=== PATIENT | male | born 1935 | race Caucasian/White ===

== ENCOUNTER 2016-11-04 12:46 | Inpatient (IN) | payer OTHER, BC ==
--- NOTE | 2016-11-04 12:54 | CPEKG ---
Heart Rate: 66 RR Interval: 909 QRSD Interval: 146 QT Interval: 476 QTC Interval: 499 P Leota: 0 QRS Leota: -40 T Wave Leota: 128 EKG Severity - ABNORMAL ECG - EKG Impression: VENTRICULAR-PACED COMPLEXES EKG Impression: pvc Electronically Signed By: Lamin Fields 05-Nov-2016 12:23:54
--- NOTE | 2016-11-04 13:05 | EDPHY ---
H & P Time Seen by Provider: 11/04/16 12:56 HPI/ROS: CHIEF COMPLAINT: Near-syncope HISTORY OF PRESENT ILLNESS: The patient is an anticoagulated 81 y/o male arriving via EMS for evaluation of a stroke alert. EMS reports that he was at physical therapy doing stand-ups from his wheelchair when he began feeling light -headed, and near syncopal, sat down hard, and vomited. He was reassessed 1 hour later, sat up and felt shaky but did not vomit then sat down. He has a pacer which was reviewed by EMS to have a spike with no PQRS complex. He visited the ED 2 weeks ago for shortness of breath and hypoxia and was discharged He has not had a fever, cold, nausea or vomiting and was normal days prior to the event. He denies headache, chest pain, nausea, and shortness of breath. REVIEW OF SYSTEMS: Aside from elements discussed in the HPI, a comprehensive 10-point review of systems was reviewed and is negative. PAST MEDICAL HISTORY: Inguinal hernia repair, Pacemaker, Cardiac Stents SOCIAL HISTORY: Resides at assisted living facility. Non-smoker. Son at bedside. He has infected ear. He was at PT and had a 1 minute seizure 2 hours ago. Then had 30 se 1 hour ago. he was doing up downs and had a funny look on his face and sat down hard and threw up. He was then reassesed sat up and felt shakey but did not vomit then sat down. he has a pacer. pacer would spike no pqrs complex with t. [facility]. No fever colds nausea vomiting days up to he was normal. was recently admitted for fluid buildup n chest cavity. 2 weeks e went to [facility]. he denies headache, chest pain, nausea, shortness of breat. Pupils equal and reactive. Moist MM. Irregularly irregular hr. Lungs clear to ascultation. Abdomen bening, skin cool to touch. BP 89/54. On prodaxa. EKG had paced rhythm but on monitor having non capture beats. Breif near- syncopal episode. 500cc bolus, blood, Histat. No leg edema. - Medical/Surgical History Hx Asthma: No Hx Chronic Respiratory Disease: No Hx Diabetes: No Hx Cardiac Disease: Yes Hx Renal Disease: No Hx Cirrhosis: No Hx Alcoholism: No Hx HIV/AIDS: No Hx Splenectomy or Spleen Trauma: No Other PMH: INGUINAL HERNIA SURG/TB LOBECTOMY/PACEMAKER /STENTS,SHINGLES, ORIF NRIGHT HIP. - Social History Smoking Status: Never smoked Constitutional: Initial Vital Signs Temperature (C) 36.3 C 11/04/16 12:51 Heart Rate 70 11/04/16 12:51 Respiratory Rate 20 11/04/16 12:51 Blood Pressure 118/65 11/04/16 12:51 O2 Sat (%) 96 11/04/16 12:51 O2 Delivery Mode Room Air O2 (L/minute) 2 Allergies/Adverse Reactions: clopidogrel bisulfate [From Plavix] Allergy (Verified 10/29/15 19:34) Unknown Corticosteroids (Glucocorticoids) Allergy (Verified 10/29/15 19:34) Unknown meperidine Allergy (Verified 10/29/15 19:34) Unknown meperidine HCl [From Demerol] Allergy (Verified 10/29/15 19:34) Unknown prednisone Allergy (Verified 10/29/15 19:34) Unknown Sulfa (Sulfonamide Antibiotics) Allergy (Verified 10/29/15 19:34) Unknown thiethylperazine Allergy (Verified 10/29/15 19:34) ticlopidine HCl [From Ticlid] Allergy (Verified 10/29/15 19:34) Home Medications: Medication Instructions Recorded Atorvastatin Calcium [Lipitor 10 10 mg PO HS 10/30/15 mg (*)] DULoxetine [Cymbalta] 80 mg PO HS 10/30/15 Dabigatran Etexilate Mesyl 150 mg PO BID 10/30/15 [Pradaxa 150 MG (*)] Ergocalciferol [Vitamin D2 (*)] 50,000 unit PO Q14D 10/30/15 Metoprolol Tartrate [Lopressor 25 25 mg PO BID 10/30/15 mg (*)] Nystatin Powder [Mycostatin Powder] 1 emily TOP BID PRN 10/30/15 Polyethylene Glycol 3350 [Miralax 17 gm PO DAILY 10/30/15 17 gm (*)] Triamcinolone 0.1% [Triamcinolone 1 emily TP TID PRN 10/30/15 0.1% Cream (*)] amLODIPine BESYLATE [Norvasc 5 mg 5 mg PO DAILY 10/30/15 (*)] guaiFENesin [Mucinex 600 MG (*)] 1,200 mg PO BID #90 tab.er 10/30/15 oxyCODONE IR [Oxycodone Ir (*)] 5 mg PO Q3 PRN 10/30/15 Calcium Carbonate [Tums 500MG (*)] 500 mg PO Q8HRS PRN 10/19/16 Omeprazole [Prilosec 20 mg] 20 mg PO HS 10/19/16 Sodium Cl Nasal [[place] (*)] 2 spray EACHNARE BID 10/19/16 Tamsulosin HCl [Flomax 0.4 MG (*)] 0.4 mg PO HS 10/19/16 Furosemide [Lasix 40 MG (*)] 40 mg PO DAILY #30 tab 10/21/16 Departure - Departure Referrals: Patient,NotPresent [Primary Care Provider] - As per Instructions
[2016-11-04] MEDS ORDERED: NS 500 ML IV ONE ×3 (13:10→18:28)
[2016-11-04 13:16] LABS: % IMMATURE GRANULYOCYTES 1.2 % (0.0-1.1); ABSOLUTE IMMATURE GRANULOCYTES 0.16 10^3/uL (0.00-0.10); ADD DIFF? NO; ADD MORPH? NO; ADD SCAN? NO; ATYPICAL LYMPHOCYTE FLAG 0 (0-99); FRAGMENT RBC FLAG 0 (0-99); HEMATOCRIT 44.8 % (40.0-51.0); HEMOGLOBIN 14.8 g/dL (13.7-17.5); LEFT SHIFT FLG 0 (0-99); LIPEMIA HEMOLYSIS FLAG 80 (0-99); MEAN CELL VOLUME 90.9 fL (81.5-99.8); MEAN PLATELET VOLUME 10.2 fL (8.7-11.7); PLATELET CLUMPS FLAG 10 (0-99); PLATELET COUNT 204 10^3/uL (150-400); RED BLOOD CELL COUNT 4.93 10^6/uL (4.40-6.38); RED CELL DISTRIBUTION WIDTH 14.6 % (11.5-15.2)
--- NOTE | 2016-11-04 14:00 | EDPHY ---
HPI/HX/ROS/PE/MDM Narrative: CHIEF COMPLAINT: Possible syncope HISTORY OF PRESENT ILLNESS: The patient is an anticoagulated 81 y/o male arriving via EMS for evaluation of a possible syncopal event or seizure 2 hours prior to arrival. Patient was admitted recently for shortness of breath and hypoxemia and was discharged to an assisted care facility 2 weeks ago. He has been feeling well for the past few days. EMS reports while at physical therapy doing a transfer from his wheelchair the patient suddenly felt lightheaded and near syncopal. Staff then witnessed him slump over in his chair and become minimally responsive for a short period of time. It is unclear what happened following this episode, but his son reports he was reassessed 1 hour later. At that time, he tried to sit up, began jerking his arms, complained of chest pain and nausea, and apparently was confused for about 30 seconds. Upon assessment here he is asymptomatic. He denies fever, cold, vomiting, headache, shortness of breath, or any other associated symptoms. In is incredibly hard of hearing, and history and review of systems is somewhat limited. REVIEW OF SYSTEMS: Aside from elements discussed in the HPI, 10-point review of systems was reviewed and is negative. 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 Past medical records reviewed including admission on 10/18/16 for cough and shortness of breath. SOCIAL HISTORY: Resides at [facility]. Non-smoker. Son at bedside. 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 BP 89/54. GENERAL: Elderly gentleman, hard of hearing, appears in no acute distress. HEENT: Atraumatic. Eyes: No icterus, no injection. Ears: Squamous cell lesion to left ear. Mouth: moist mucous membranes. No erythema or lesions. Neck: supple with no adenopathy. LUNGS: Clear to auscultation bilaterally, no wheezes, rhonchi or rales. CARDIAC: Irregularly irregular rate and rhythm, no rubs, murmurs or gallops. ABDOMEN: Soft, nontender, nondistended, bowel sounds normal. BACK: No CVA tenderness. EXTREMITIES: No trauma. No edema. Range of motion is normal throughout. NEURO: Alert and oriented, grossly nonfocal. SKIN: Warm and dry, no rash. PSYCHIATRIC: Normal mentation, no agitation. Portions of this note were transcribed by a medical billing manager. I, Dr Tiffany Hernandez , personally performed a history, physical exam, medical decision making, and confirmed the accuracy of the information in the transcribed note. ED Course: Plan for EKG, IV, labs, head CT, chest X-ray, and 1L IV NS. [employer] rep. paged for pacemaker interrogation. The 12 lead EKG was interpreted by myself. Ventricular-paced complexes, rate 66. See hard copy and/or "tracemaster" electronic copy for interpretation. 1311: Chest X-ray is positive for small right pleural effusion and cardiomegaly. Head CT is negative for acute process per Dr. Canas, radiology. 1735: Spoke with Matomy Money. He has successfully interrogated patient 's pacemaker and reports there are no remarkable findings. 1828: Spoke with Dr. Del Cid, hospitalist. She accepts admission for his nausea and syncope. MDM: Differential diagnosis of the patient's presenting complaint was considered including but not limited to seizure, vasovagal syncope, arrhythmia, dehydration , acute coronary event, congestive heart failure. - Data Points Imaging Results: Imaging Impressions Chest X-Ray 11/04/16 13:11 Impression: 1. Small right pleural effusion or residual right basilar consolidation have not significantly changed since 2 weeks prior. 2. Cardiomegaly. No failure. Head CT 11/04/16 13:11 Impression: 1. Moderate atrophy with asymmetric central atrophy. 2. No acute hemorrhage, or mass effect. 3. Cerebrovascular atherosclerosis. 4. No definite acute infarct. 5. Moderate microvascular ischemic gliosis. 6. No epidural or subdural hematoma. 7.Consider MRI of the brain without and with contrast enhancement, if there is continued clinical concern. Findings and recommendations discussed with Emergency Department physician, Tiffany Hernandez MD at 13:59 hour, 11/04/2016. Final report concurs with initial preliminary interpretation. Imaging: Discussed imaging studies w/ scallop shucker Radiologist, I viewed and interpreted images myself Laboratory Results: Laboratory Results 11/04/16 12:50 11/04/16 12:50 11/04/16 11/04/16 11/04/16 13:03 12:50 12:50 WBC 13.82 10^3/uL H 10^3/uL (3.80-9.50) RBC 4.93 10^6/uL 10^6/uL (4.40-6.38) Hgb 14.8 g/dL g/dL (13.7-17.5) POC Hgb 14.3 gm/dL gm/dL (13.7-17.5) Hct 44.8 % % (40.0-51.0) POC Hct 42 % % (40-51) MCV 90.9 fL fL (81.5-99.8) MCH 30.0 pg pg (27.9-34.1) MCHC 33.0 g/dL g/dL (32.4-36.7) RDW 14.6 % % (11.5-15.2) Plt Count 204 10^3/uL 10^3/uL (150-400) MPV 10.2 fL fL (8.7-11.7) Neut % (Auto) 85.9 % H % (39.3-74.2) Lymph % (Auto) 3.8 % L % (15.0-45.0) [place] % (Auto) 5.9 % % (4.5-13.0) Eos % (Auto) 2.2 % % (0.6-7.6) Baso % (Auto) 1.0 % % (0.3-1.7) Nucleat RBC Rel Count 0.0 % % (0.0-0.2) Absolute Neuts (auto) 11.86 10^3/uL H 10^3/uL (1.70-6.50) Absolute Lymphs (auto) 0.53 10^3/uL L 10^3/uL (1.00-3.00) Absolute Monos (auto) 0.82 10^3/uL H 10^3/uL (0.30-0.80) Absolute Eos (auto) 0.31 10^3/uL 10^3/uL (0.03-0.40) Absolute Basos (auto) 0.14 10^3/uL H 10^3/uL (0.02-0.10) Absolute Nucleated RBC 0.00 10^3/uL 10^3/uL (0-0.01) Immature Gran % 1.2 % H % (0.0-1.1) Immature Gran # 0.16 10^3/uL H 10^3/uL (0.00-0.10) POC Sodium 137 mEq/L mEq/L (134-144) Sodium 131 mEq/L L mEq/L (134-144) POC Potassium 4.2 mEq/L mEq/L (3.3-5.0) Potassium 4.3 mEq/L mEq/L (3.5-5.2) POC Chloride 100 mEq/L mEq/L (97-110) Chloride 97 mEq/L mEq/L (97-110) Carbon Dioxide 22 mEq/l mEq/l (22-31) Anion Gap 12 mEq/L mEq/L (8-16) POC BUN 29 mg/dL H mg/dL (7-23) BUN 24 mg/dL H mg/dL (7-23) Creatinine 1.0 mg/dL mg/dL (0.7-1.3) POC Creatinine 0.8 mg/dL mg/dL (0.7-1.3) Estimated GFR > 60 Glucose 180 mg/dL H mg/dL (70-100) POC Glucose 169 mg/dL H mg/dL (70-100) Calcium 9.4 mg/dL mg/dL (8.5-10.4) Total Bilirubin 1.3 mg/dL mg/dL (0.1-1.4) Conjugated Bilirubin 0.4 mg/dL mg/dL (0.0-0.5) Unconjugated Bilirubin 0.9 mg/dL mg/dL (0.0-1.1) AST 26 IU/L IU/L (17-59) ALT 32 IU/L IU/L (21-72) Alkaline Phosphatase 101 IU/L IU/L (38-126) Troponin I < 0.012 ng/mL ng/mL (0.000-0.034) NT-Pro-B Natriuret Pep 1360 pg/mL H pg/mL (0-450) Total Protein 6.4 g/dL g/dL (6.3-8.2) Albumin 3.6 g/dL g/dL (3.5-5.0) Lipase 21 IU/L L IU/L (23-300) Medications Given: Discontinued Medications Sodium Chloride (Ns) 500 mls @ 0 mls/hr IV ONCE ONE PRN Reason: Wide Open Stop: 11/04/16 13:11 Last Admin: 11/04/16 13:11 Dose: 500 mls Sodium Chloride (Ns) 500 mls @ 1,000 mls/hr IV EDNOW ONE PRN Reason: Protocol Stop: 11/04/16 13:39 Last Admin: 11/04/16 13:13 Dose: Not Given Point of Care Test Results: 11/04/16 13:03 POC Sodium 137 POC Potassium 4.2 POC Chloride 100 POC BUN 29 H POC Creatinine 0.8 POC Glucose 169 H General Time Seen by Provider: 11/04/16 12:56 Initial Vital Signs: Initial Vital Signs Temperature (C) 36.3 C 11/04/16 12:51 Heart Rate 70 11/04/16 12:51 Respiratory Rate 20 11/04/16 12:51 Blood Pressure 118/65 11/04/16 12:51 O2 Sat (%) 96 11/04/16 12:51 O2 Delivery Mode Nasal Cannula O2 (L/minute) 2 Allergies/Adverse Reactions: clopidogrel bisulfate [From Plavix] Allergy (Verified 10/29/15 19:34) Unknown Corticosteroids (Glucocorticoids) Allergy (Verified 10/29/15 19:34) Unknown meperidine Allergy (Verified 10/29/15 19:34) Unknown meperidine HCl [From Demerol] Allergy (Verified 10/29/15 19:34) Unknown prednisone Allergy (Verified 10/29/15 19:34) Unknown Sulfa (Sulfonamide Antibiotics) Allergy (Verified 10/29/15 19:34) Unknown thiethylperazine Allergy (Verified 10/29/15 19:34) ticlopidine HCl [From Ticlid] Allergy (Verified 10/29/15 19:34) Home Medications: Medication Instructions Recorded Atorvastatin Calcium [Lipitor 10 10 mg PO HS 11/04/16 mg (*)] Calcium Carbonate [Tums 500MG (*)] 500 mg PO Q8 PRN 11/04/16 Dabigatran Etexilate Mesyl 150 mg PO BID 11/04/16 [Pradaxa 150 MG (*)] Duloxetine HCl [Cymbalta] 80 mg PO HS 11/04/16 Ergocalciferol [Vitamin D2 (*)] 50,000 unit PO .[id number] 11/04/16 Flomax 0.4 MG (*) 0.4 mg PO DAILY 11/04/16 Furosemide [Lasix 40 MG (*)] 60 mg PO DAILY 11/04/16 Metoprolol Tartrate [Lopressor 25 25 mg PO BID 11/04/16 mg (*)] Omeprazole [Prilosec 20 mg] 20 mg PO DAILY 11/04/16 Sodium Cl Nasal [[place] (*)] 2 spray NS BID PRN 11/04/16 Triamcinolone 0.1% [Triamcinolone 1 emily LEFTEAR BID 11/04/16 0.1% Cream (*)] amLODIPine BESYLATE [Norvasc 2.5 2.5 mg PO DAILY 11/04/16 mg (*)] guaiFENesin [Mucinex 600 MG (*)] 1,200 mg PO BID 11/04/16 oxyCODONE IR [Oxycodone Ir (*)] 5 mg PO Q3 PRN 11/04/16 Departure - Departure Disposition: [facility] Inpatient Acute Clinical Impression: Nausea Syncope Qualifiers: Syncope type: unspecified Qualified Code(s): R55 - Syncope and collapse Chest pain Qualifiers: Chest pain type: other chest pain Qualified Code(s): R07.89 - Other chest pain Condition: Fair Report Scribed for: Tiffany Hernandez Report Scribed by: Simi Lopez Date of Report: 11/04/16 Time of Report: 14:52 Physician Review and Approval Statement: Portions of this note were transcribed by a medical billing manager. I personally performed a history, physical exam, medical decision making, and confirmed accuracy of information the transcribed note.
[2016-11-04 14:22] LABS: ALANINE AMINOTRANSFERASE 32 IU/L (21-72); ALBUMIN 3.6 g/dL (3.5-5.0); ALKALINE PHOSPHATASE 101 IU/L (38-126); ANION GAP 12 mEq/L (8-16); ASPARTATE AMINOTRANSFERASE 26 IU/L (17-59); BILIRUBIN,TOTAL 1.3 mg/dL (0.1-1.4); BILIRUBIN-CONJUGATED 0.4 mg/dL (0.0-0.5); BILIRUBIN-UNCONJUGATED 0.9 mg/dL (0.0-1.1); CALCIUM 9.4 mg/dL (8.5-10.4); CARBON DIOXIDE 22 mEq/l (22-31); CHLORIDE 97 mEq/L (97-110); GLOMERULAR FILTRATION RATE > 60; GLUCOSE 180 mg/dL (70-100); POTASSIUM 4.3 mEq/L (3.5-5.2); SODIUM 131 mEq/L (134-144); TOTAL PROTEIN 6.4 g/dL (6.3-8.2)
[2016-11-04 14:33] LABS: TROPONIN I < 0.012 ng/mL (0.000-0.034)
[2016-11-04] MEDS ORDERED: ONDANSETRON 4 MG/2 ML VIAL IVP PRN (18:28)
[2016-11-04] MEDS ORDERED: ONDANSETRON DISINTEGRATING 4 MG TAB PO PRN (18:28)
[2016-11-04] MEDS ORDERED: ACETAMINOPHEN 325 MG TAB PO PRN (18:28)
[2016-11-05 02:14] LABS: COLOR YELLOW; LEUKOCYTE ESTERASE,URINE NEGATIVE (NEGATIVE); NITRITE,URINE NEGATIVE (NEGATIVE)
--- NOTE | 2016-11-05 05:20 | PDGENHP ---
History and Physical - Chief Complaint Pre-syncope - History of Present Illness 81 yo M w/ hx of CAD, AF, CHF presents via EMS after episode of pre-syncope. Patient was recently hospitalized and discharged 2 weeks ago to an assisted care facility with an increased dose of diuretics. During PT on the day of admission he felt lightheaded during a transfer and was transiently unresponsive. He was confused for about 30 seconds after this. Upon arrival in the ED give was given 1.5 L IVF and was asymptomatic and feeling better by the time of my evaluation. History Information - Allergies/Home Medication List Allergies/Adverse Reactions: clopidogrel bisulfate [From Plavix] Allergy (Verified 10/29/15 19:34) Unknown Corticosteroids (Glucocorticoids) Allergy (Verified 10/29/15 19:34) Unknown meperidine Allergy (Verified 10/29/15 19:34) Unknown meperidine HCl [From Demerol] Allergy (Verified 10/29/15 19:34) Unknown prednisone Allergy (Verified 10/29/15 19:34) Unknown Sulfa (Sulfonamide Antibiotics) Allergy (Verified 10/29/15 19:34) Unknown thiethylperazine Allergy (Verified 10/29/15 19:34) ticlopidine HCl [From Ticlid] Allergy (Verified 10/29/15 19:34) Home Medications: Atorvastatin Calcium [Lipitor 10 mg (*)] 10 mg PO HS 11/04/16 [Last Taken Unknown] Calcium Carbonate [Tums 500MG (*)] 500 mg PO Q8 PRN 11/04/16 [Last Taken Unknown ] Dabigatran Etexilate Mesyl [Pradaxa 150 MG (*)] 150 mg PO BID 11/04/16 [Last Taken Unknown] Duloxetine HCl [Cymbalta] 80 mg PO HS 11/04/16 [Last Taken Unknown] Ergocalciferol [Vitamin D2 (*)] 50,000 unit PO .[id number] 11/04/16 [Last Taken Unknown] Flomax 0.4 MG (*) 0.4 mg PO DAILY 11/04/16 [Last Taken Unknown] Furosemide [Lasix 40 MG (*)] 60 mg PO DAILY 11/04/16 [Last Taken Unknown] Metoprolol Tartrate [Lopressor 25 mg (*)] 25 mg PO BID 11/04/16 [Last Taken Unknown] Omeprazole [Prilosec 20 mg] 20 mg PO DAILY 11/04/16 [Last Taken Unknown] Sodium Cl Nasal [[place] (*)] 2 spray NS BID PRN 11/04/16 [Last Taken Unknown] Triamcinolone 0.1% [Triamcinolone 0.1% Cream (*)] 1 emily LEFTEAR BID 11/04/16 [ Last Taken Unknown] amLODIPine BESYLATE [Norvasc 2.5 mg (*)] 2.5 mg PO DAILY 11/04/16 [Last Taken Unknown] guaiFENesin [Mucinex 600 MG (*)] 1,200 mg PO BID 11/04/16 [Last Taken Unknown] oxyCODONE IR [Oxycodone Ir (*)] 5 mg PO Q3 PRN 11/04/16 [Last Taken Unknown] I have personally reviewed and updated: family history, medical history - Past Medical History atrial fibrillation (Unclear type), CHF (With loculated transudative effusion), diabetes type 2 Additional medical history: Remote history of tuberculosis. Coronary artery disease with cardiac stents. History of atypical chest pain. Squamous cell skin cancer left ear, status post debridement. Deafness - Surgical History Additional surgical history: Permanent pacemaker. Inguinal and ventral hernia repairs - Family History Additional family history: Patient's son has recently been sick with a cold approximately 1 week ago - Social History Smoking Status: Never smoked Additional social history: Patient resides at [facility] Review of Systems Review of Systems: ROS: 10pt was reviewed & negative except for what was stated in HPI & below Physical Exam Physical Exam: Temp Pulse Resp BP Pulse Ox 36.4 C 74 20 120/68 96 11/05/16 03:55 11/05/16 03:55 11/05/16 03:55 11/05/16 03:55 11/05/16 03:55 O2 (L/minute) 4 Constitutional: no apparent distress, not in pain Eyes: PERRL, EOMI Ears, Nose, Mouth, Throat: moist mucous membranes, no oral mucosal ulcers Cardiovascular: regular rate and rhythym, No edema Respiratory: no respiratory distress, clear to auscultation Gastrointestinal: normoactive bowel sounds, soft, non-tender abdomen Skin: warm, other (Multiple bruises UE's, healing scab L ear) Neurologic: AAOx3, CN II-XII Intact, other (Hard of hearing) Psychiatric: interacting appropriately, not anxious Lab Data & Imaging Review 11/04/16 12:50 11/04/16 12:50 WBC 13.82 10^3/uL (3.80-9.50) H 11/04/16 12:50 RBC 4.93 10^6/uL (4.40-6.38) 11/04/16 12:50 Hgb 14.8 g/dL (13.7-17.5) 11/04/16 12:50 POC Hgb 14.3 gm/dL (13.7-17.5) 11/04/16 13:03 Hct 44.8 % (40.0-51.0) 11/04/16 12:50 POC Hct 42 % (40-51) 11/04/16 13:03 MCV 90.9 fL (81.5-99.8) 11/04/16 12:50 MCH 30.0 pg (27.9-34.1) 11/04/16 12:50 MCHC 33.0 g/dL (32.4-36.7) 11/04/16 12:50 RDW 14.6 % (11.5-15.2) 11/04/16 12:50 Plt Count 204 10^3/uL (150-400) 11/04/16 12:50 MPV 10.2 fL (8.7-11.7) 11/04/16 12:50 Neut % (Auto) 85.9 % (39.3-74.2) H 11/04/16 12:50 Lymph % (Auto) 3.8 % (15.0-45.0) L 11/04/16 12:50 [place] % (Auto) 5.9 % (4.5-13.0) 11/04/16 12:50 Eos % (Auto) 2.2 % (0.6-7.6) 11/04/16 12:50 Baso % (Auto) 1.0 % (0.3-1.7) 11/04/16 12:50 Nucleat RBC Rel Count 0.0 % (0.0-0.2) 11/04/16 12:50 Absolute Neuts (auto) 11.86 10^3/uL (1.70-6.50) H 11/04/16 12:50 Absolute Lymphs (auto) 0.53 10^3/uL (1.00-3.00) L 11/04/16 12:50 Absolute Monos (auto) 0.82 10^3/uL (0.30-0.80) H 11/04/16 12:50 Absolute Eos (auto) 0.31 10^3/uL (0.03-0.40) 11/04/16 12:50 Absolute Basos (auto) 0.14 10^3/uL (0.02-0.10) H 11/04/16 12:50 Absolute Nucleated RBC 0.00 10^3/uL (0-0.01) 11/04/16 12:50 Immature Gran % 1.2 % (0.0-1.1) H 11/04/16 12:50 Immature Gran # 0.16 10^3/uL (0.00-0.10) H 11/04/16 12:50 POC Sodium 137 mEq/L (134-144) 11/04/16 13:03 Sodium 131 mEq/L (134-144) L 11/04/16 12:50 POC Potassium 4.2 mEq/L (3.3-5.0) 11/04/16 13:03 Potassium 4.3 mEq/L (3.5-5.2) 11/04/16 12:50 POC Chloride 100 mEq/L (97-110) 11/04/16 13:03 Chloride 97 mEq/L (97-110) 11/04/16 12:50 Carbon Dioxide 22 mEq/l (22-31) 11/04/16 12:50 Anion Gap 12 mEq/L (8-16) 11/04/16 12:50 POC BUN 29 mg/dL (7-23) H 11/04/16 13:03 BUN 24 mg/dL (7-23) H 11/04/16 12:50 Creatinine 1.0 mg/dL (0.7-1.3) 11/04/16 12:50 POC Creatinine 0.8 mg/dL (0.7-1.3) 11/04/16 13:03 Estimated GFR > 60 11/04/16 12:50 Glucose 180 mg/dL (70-100) H 11/04/16 12:50 POC Glucose 169 mg/dL (70-100) H 11/04/16 13:03 Calcium 9.4 mg/dL (8.5-10.4) 11/04/16 12:50 Total Bilirubin 1.3 mg/dL (0.1-1.4) 11/04/16 12:50 Conjugated Bilirubin 0.4 mg/dL (0.0-0.5) 11/04/16 12:50 Unconjugated Bilirubin 0.9 mg/dL (0.0-1.1) 11/04/16 12:50 AST 26 IU/L (17-59) 11/04/16 12:50 ALT 32 IU/L (21-72) 11/04/16 12:50 Alkaline Phosphatase 101 IU/L (38-126) 11/04/16 12:50 Troponin I < 0.012 ng/mL (0.000-0.034) 11/04/16 12:50 NT-Pro-B Natriuret Pep 1360 pg/mL (0-450) H 11/04/16 12:50 Total Protein 6.4 g/dL (6.3-8.2) 11/04/16 12:50 Albumin 3.6 g/dL (3.5-5.0) 11/04/16 12:50 Lipase 21 IU/L (23-300) L 11/04/16 12:50 Urine Color YELLOW 11/05/16 02:05 Urine Appearance CLEAR 11/05/16 02:05 Urine pH 5.0 (5.0-7.5) 11/05/16 02:05 Ur Specific [place] 1.026 (1.002-1.030) 11/05/16 02:05 Urine Protein NEGATIVE (NEGATIVE) 11/05/16 02:05 Urine Ketones TRACE (NEGATIVE) H 11/05/16 02:05 Urine Blood NEGATIVE (NEGATIVE) 11/05/16 02:05 Urine Nitrate NEGATIVE (NEGATIVE) 11/05/16 02:05 Urine Bilirubin NEGATIVE (NEGATIVE) 11/05/16 02:05 Urine Urobilinogen NEGATIVE EU (0.2-1.0) 11/05/16 02:05 Ur Leukocyte Esterase NEGATIVE (NEGATIVE) 11/05/16 02:05 Urine Glucose NEGATIVE (NEGATIVE) 11/05/16 02:05 Visualized and Interpreted Chest x-ray results: Yes Chest X-Ray results: other (Small, stable R pleural effusion, PPM noted.) Visualized and Interpreted EKG results: Yes EKG additional interpertation: V-paced Assessment & Plan Assessment: 81 yo M w/ HFpEF, CAD, AF s/p PPM presenting after pre-syncopal event. Plan: 1. Pre-syncope - I suspect this was orthostasis due to relative hypovolemia in combination w/ a1 rhonda. Patient was recently discharged with increased dose of diuretics and is predisposed to orthostatic symptoms due to pulmonary hypertension (last RVSP 45-60). His weight today was 97 kg (taken after 1.5 L IVF), which is 1 kg lower than on discharge and 6 kg lower than on day of last admission. It is likely that patient has a very narrow ideal volume range noting cardiac comorbidities. - Hold further diuresis for now - PT/OT for functional evaluation after IVF 2. HFpEF - TTE during September admission showed preserved EF, biatrial enlargement , and pulmonary hypertension. Discharged with furosemide 60 mg PO qD. BNP relatively similar to previous values. Appears euvolemic to hypovolemic on exam. - Hold diuresis for now - Lower dose of furosemide on discharge 3. AF - s/p PPM; V-paced on admission ECG. On BB and dabigatran for anticoagulation. 4. HTN - On amlodipine and metoprolol as outpatient 5. BPH - On tamsulosin, consider holding if continues to have orthostatic symptoms Diet - Cardiac Code - Full Ppx - Dabigatran Dispo - Admit to observation
[2016-11-05 07:54] LABS: % IMMATURE GRANULYOCYTES 0.6 % (0.0-1.1); ABSOLUTE IMMATURE GRANULOCYTES 0.06 10^3/uL (0.00-0.10); ADD DIFF? NO; ADD MORPH? NO; ADD SCAN? NO; ATYPICAL LYMPHOCYTE FLAG 0 (0-99); FRAGMENT RBC FLAG 0 (0-99); HEMATOCRIT 41.1 % (40.0-51.0); HEMOGLOBIN 13.5 g/dL (13.7-17.5); LEFT SHIFT FLG 0 (0-99); LIPEMIA HEMOLYSIS FLAG 80 (0-99); MEAN CELL HEMOGLOBIN CONCENTR. 32.8 g/dL (32.4-36.7); MEAN CELL VOLUME 91.3 fL (81.5-99.8); MEAN PLATELET VOLUME 9.6 fL (8.7-11.7); PLATELET CLUMPS FLAG 10 (0-99); PLATELET COUNT 174 10^3/uL (150-400); RED CELL DISTRIBUTION WIDTH 14.6 % (11.5-15.2)
[2016-11-05 08:27] LABS: ANION GAP 7 mEq/L (8-16); CALCIUM 8.7 mg/dL (8.5-10.4); CARBON DIOXIDE 26 mEq/l (22-31); CHLORIDE 101 mEq/L (97-110); CREATININE 0.8 mg/dL (0.7-1.3); GLOMERULAR FILTRATION RATE > 60; GLUCOSE 105 mg/dL (70-100); POTASSIUM 3.8 mEq/L (3.5-5.2); SODIUM 134 mEq/L (134-144)
[2016-11-05] MEDS ORDERED: CALCIUM CARBONATE 500 MG CHEWABLE TAB PO PRN (10:22)
[2016-11-05] MEDS ORDERED: oxyCODONE IR 5 MG TAB PO PRN (10:22)
[2016-11-05] MEDS ORDERED: SODIUM CL NASAL 45 ML BTL NS PRN (10:22)
[2016-11-05] MEDS ORDERED: ERGOCALCIFEROL 50,000 I.UNIT CAP PO SCH (10:30)
--- NOTE | 2016-11-05 11:54 | GCON ---
[f rep st] CONSULTATION CARDIOLOGY CONSULTATION. INDICATION FOR CONSULTATION: Syncopal event. HISTORY OF PRESENT ILLNESS: The patient is an 81-year-old male, who is known to our practice. He has significant past history that includes permanent atrial fibrillation, remote PPM implantation, CAD (status post remote PCI of the obtuse marginal), hypertension, chronic diastolic heart failure, hyperlipidemia, and remote history of tuberculosis. He has had a recent hospitalization for diastolic heart failure two weeks ago, with recent discharge on new diuretic dose and fluid restriction for after hospitalization. He had been discharged to an assisted care facility. Per patient, he was getting ready to do physical therapy yesterday, felt lightheaded during a transfer, and then became unresponsive. He was confused about 30 seconds. EMS was called, and he was brought to [facility]. Upon arrival to the emergency department, electrocardiogram was done showing that patient was in chronic AFib with intrinsic and ventricular-paced rhythm. Heart rate was 66 beats per minute. Laboratory studies drawn at that time showing negative troponin, proBNP of 1360. [employer] community relations representative was called for interrogation of his device, showing no significant arrhythmias by his device. He was given 1.5 L of IV fluid. In the emergency department, reporting feeling significantly better. Patient reports at the time prior to his event, he did have some episodes of nausea and some vomiting yesterday. He has been on a higher dose of diuretic therapy since his hospital discharge, and he has also been on a fluid-restricted diet. He denies any palpitations prior to his event , and denies any chest pain or shortness of breath. He denies any orthopnea, PND, or symptoms suggestive of TIA or CVA. PAST MEDICAL HISTORY: Includes: 1. Permanent atrial fibrillation. 2. Coronary artery disease. 3. Hypertension. 4. Chronic diastolic heart failure. 5. Remote TB. 6. Hyperlipidemia. 7. Sick sinus syndrome. PAST SURGICAL HISTORY: Includes: 1. Remote PPM implantation. 2. Past PCI with stent implantation in the obtuse marginal. 3. Inguinal hernia repair. FAMILY HISTORY: Per chart, patient's family has history of congestive heart failure in his father. Per chart, patient's son has had a recent cold approximately 1 week ago. SOCIAL HISTORY: He currently resides in a detention. Has 1 son. He never smokes. He is a . Denies any illicit drug use. ALLERGIES: Clopidogrel, glucocorticoids, Demerol, prednisone, sulfa, and thiethylperazine. HOME MEDICATIONS: Include vitamin D2 5000 units p.o. every 14 days, triamcinolone to left ear b.i.d., Tums 500 mg p.o. q.8 hours p.r.n., [place] 2 sprays to nostrils b.i.d. p.r.n., Prilosec 20 mg p.o. daily, oxycodone 5 mg p.o. q.3 hours, Pradaxa 150 mg p.o. b.i.d., Amlodipine 2.5 mg p.o. daily, metoprolol tartrate 25 mg p.o. daily, Lasix 60 mg p.o. daily, atorvastatin 10 mg p.o. h.s., Mucinex 1200 mg p.o. b.i.d., Flomax 0.4 mg p.o. daily, Cymbalta 80 mg p.o. h.s. REVIEW OF SYSTEMS: A 10-point review of systems done on patient, all negative except as mentioned above. PHYSICAL EXAMINATION: CONSTITUTIONAL: Tall, well-groomed male. He is alert and oriented to person, place, time, and situation. He appears to be in no acute distress. VITAL SIGNS: Current heart rate 70 in AFib with occasional ventricular paced beat, respirations 17, saturating 90% on 4 L nasal cannula, temperature of 36.7 degrees Celsius. Orthostatic blood pressures done showing supine blood pressure of 132/63 with heart rate at 60 and standing blood pressure of 96/47 with heart rate at 90. HEENT: Head is normocephalic. Lips and tongue are pink and moist with no signs of cyanosis. Conjunctivae pink. NECK: Trachea is midline. +2 carotid pulses bilateral. No auscultated bruits. No JVD noted at 45-degree angle. LUNGS: Clear, but diminished in bases bilateral. No rhonchi, rales, or wheezes. No accessory muscle use. No intercostal muscle retraction noted. CARDIAC: Regular rate, regular rhythm. S1 and S2. No S3 or S4 noted. A 1/6 to 2/6 systolic murmur noted along the left sternal border. ABDOMEN: Soft, nontender. Bowel sounds x4 quadrants. No organomegaly. No palpable masses. SKIN: [place], warm, and dry. No cyanosis. No clubbing. No peripheral edema. Skin turgor greater than 4 seconds. LABORATORY STUDIES: Drawn today: WBC of 9.41, hemoglobin of 13.5, hematocrit of 41.1, platelet count of 174. Sodium 134, potassium 3.8, chloride 101, CO2 26 , BUN 21, creatinine 0.8, glucose 105, calcium 8.7. Noted on admission, total bilirubin was 1.3, AST 26, ALT 32, alkaline phosphate 101, and troponin less than 0.01. ProBNP 1360, total protein 6.4, albumin 3.6, lipase 21. Urinalysis showed trace ketones, the rest unremarkable. STUDIES: Initial electrocardiogram, as mentioned above. Head CT done on admission showing moderate atrophy with asymmetrical central atrophy; no acute hemorrhage or mass effects. Cerebrovascular arthrosclerosis. No definitive acute infarction. Moderate microvascular ischemia. No epidural or subdural hematoma. Chest x-ray done showed small right pleural effusion with no significant change since last 2 weeks; cardiomegaly with no failure. [employer] pacemaker report showing no tachy- or bradycardic arrhythmias. No significant pauses. Most recent echocardiogram, done October 18, 2016, showing LV systolic function normal with EF of 70% to 75%, grossly normal wall motion, mild concentric LVH, diastolic dysfunction, normal RV size and function, mild biatrial dilation, mild MR, mild aortic sclerosis but no stenosis, mild TR, RVSP was estimated between 45 and 60 mmHg. Most recent stress testing was April 2015 with no ischemia noted. ASSESSMENT AND PLAN: 1. Near syncope: Patient was reported with near syncopal event on transferring position; potentially lost consciousness for 30 seconds. Orthostatic blood pressures today show a significant change from supine to standing with a 36 mm difference between supine and standing and 16 mm difference in diastolic pressures from supine to standing. He has been aggressively diuresed with recent [id number] congestive heart failure. He is noted from our office visit to hospital admission of being down 2 kg more. He has also been on fluid restriction. More than likely, this is due to orthostatic hypotension. He was given 1.5 L of IV fluid in the emergency department. No arrhythmia noted on pacemaker check. I do think he is probably over diuresed. I have spoken to the hospitalists services, and we will plan on giving him some more IV fluid, will hold off on his amlodipine and tamsulosin at this time, and hold off on restarting his diuretics. 2. Coronary artery disease: Patient denies any chest pain or symptoms suggesting ischemia. He has no significant EKG changes suggesting ischemia, and troponin level within normal limits. At this time, he is currently not on aspirin therapy due to being on Pradaxa. He is on secondary risk prevention with atorvastatin. 3. Hypertension: Patient's blood pressure within normal limits when supine, hypo when standing. Again, will hold off on restarting him on his amlodipine. Will hold off also on diuretic therapy. 4. Chronic diastolic heart failure: Patient appears to be over diuresed. As mentioned above, will hold diuretic therapy at this time. We will continue monitoring his weight on a daily basis. We will potentially have to resume diuretic therapy in the next day or 2, depending on how he does with his orthostatic blood pressure. Will monitor closely. BNP continues to be mildly elevated, but continues to improve. 5. Pulmonary hypertension: Recent transthoracic echocardiogram showing elevated pulmonary pressures of 45-60 mmHg. The patient is on continuous oxygen therapy. For now, we will hold diuretic therapy as mentioned above. Will hold also Norvasc. 6. Chronic atrial fibrillation: Patient noted history of chronic atrial fibrillation; rate is well controlled with pacemaker. Will restart patient back on his beta-rhonda of metoprolol tartrate and restart his anticoagulation. 7. Sick sinus syndrome: Patient with permanent pacemaker implantation. 8. History of benign prostatic hypertrophy: Patient currently on tamsulosin. Will hold this medication at this time due to recent orthostatic blood pressure changes. Thank you for this consultation. We will be glad to follow along with you. /[id number]/MODL MTDD
--- NOTE | 2016-11-05 12:40 | ASMTCMCOM ---
CM Note CM Note Notes: CM reviewed chart, pt is a 81 y/o male admitted w/ pre-syncope from [facility]. Pt is hard of hearing, relies on white board for communication, has h/o dementia. Son Nadir [facility] [phone]. Pt recently discharged from [facility] on 10/21/16 for CHF and pneumonia to [facility] rehab. Pt resides at [facility] in [place]. [facility] therapy evals ordered, cm awaiting recommendations Case Management d/c poc: Anticipate return to [facility] when medically stable. Case Management to follow. Date Signed: 11/05/2016 12:39 PM Electronically Signed By:ROSIE Moraels
[2016-11-05] MEDS: DABIGATRAN ETEXILATE MESYL 150 MG CAP PO SCH ×2 (13:17→20:50)
--- NOTE | 2016-11-05 14:47 | HOSPPROG ---
Hospitalist Progress Note Assessment/Plan: #Presyncopal episode: positive orthostatics in setting of vomiting, fluid restriction at home and increased diuretics -start IVFs, hold BP meds -CTH negative, telemetry #Permanent atrial fibrillation: cont BB, Pradaxa, pacer #HTN: hold Norvasc #Chronic diastolic HF: dry on exam #Sick sinus syndrome: pacer #BPH: Flomax #DVT ppx: pradaxa #Disp: warrants inpatient admission for IV hydration, telemetry Subjective: denies CP, SOB Objective: Vital Signs Temp Pulse Resp BP Pulse Ox 36.3 C 61 13 116/76 99 11/05/16 11:38 11/05/16 11:38 11/05/16 11:38 11/05/16 11:38 11/05/16 11:38 Laboratory Results 11/05/16 07:25 11/05/16 07:25 11/04/16 11/05/16 11/06/16 05:59 05:59 05:59 Intake Total 500 Output Total 175 Balance 325 - Physical Exam Constitutional: no apparent distress Eyes: PERRL Ears, Nose, Mouth, Throat: dry mucous membranes, hard of hearing Cardiovascular: regular rate and rhythym, No edema Respiratory: no respiratory distress, No no rales or rhonchi Gastrointestinal: normoactive bowel sounds Genitourinary: no bladder fullness Skin: warm Musculoskeletal: full muscle strength Neurologic: AAOx3 Psychiatric: interacting appropriately ICD10 Worksheet Patient Problems: Problems Problem Status Onset Chest pain Acute Nausea Acute Syncope Acute Bilateral pleural effusion Acute CHF (congestive heart failure) Acute Hernia Acute Pneumonia Acute chronic disease mgmt/transitional care Acute
[2016-11-05] MEDS: METOPROLOL TARTRATE 25 MG TAB PO SCH (19:40)
[2016-11-05] MEDS: guaiFENesin 600 MG TAB.ER PO SCH (19:41)
[2016-11-05] MEDS: TRIAMCINOLONE 0.1% 15 GM CRTUBE TP SCH (20:51)
[2016-11-05] MEDS: NS 1,000 ML IV SCH (20:52)
[2016-11-05] MEDS ORDERED: DULoxetine 20 MG CAP PO SCH (21:00)
[2016-11-05] MEDS ORDERED: ATORVASTATIN CALCIUM 10 MG TAB PO SCH (21:00)
[2016-11-06 05:38] LABS: ANION GAP 9 mEq/L (8-16); CALCIUM 8.6 mg/dL (8.5-10.4); CARBON DIOXIDE 24 mEq/l (22-31); CHLORIDE 104 mEq/L (97-110); CREATININE 0.7 mg/dL (0.7-1.3); GLOMERULAR FILTRATION RATE > 60; GLUCOSE 97 mg/dL (70-100); POTASSIUM 4.3 mEq/L (3.5-5.2); SODIUM 137 mEq/L (134-144)
[2016-11-06] MEDS: NS 1,000 ML IV SCH (06:19)
[2016-11-06] MEDS ORDERED: NON-FORMULARY NEW DRUG (Omeprazole [Prilosec 20 Mg] 20 MG) PO SCH (09:00)
[2016-11-06] MEDS ORDERED: PANTOPRAZOLE SODIUM 40 MG TAB PO SCH (09:00)
[2016-11-06] MEDS: guaiFENesin 600 MG TAB.ER PO SCH (10:44)
[2016-11-06] MEDS: METOPROLOL TARTRATE 25 MG TAB PO SCH (10:44)
[2016-11-06] MEDS: DABIGATRAN ETEXILATE MESYL 150 MG CAP PO SCH (10:44)
[2016-11-06] MEDS: TRIAMCINOLONE 0.1% 15 GM CRTUBE TP SCH (10:45)
--- NOTE | 2016-11-06 11:31 | SOAPPROG ---
SOAP Progress Note Assessment/Plan: Assessment: 1. Coronary artery disease He has coronary artery disease with stent in his circumflex obtuse marginal branch. He is not having any complaints from this or other troubles. Hypotension He was been hypotensive despite a blood pressure history of hypertension. There is consideration that he may have recently been over diuresed and that led to him possibly having loss of consciousness. His blood pressure is more stable today and we can watch this closely and see if it is causing trouble for him. hypertension hyperlipidemia These are ongoing chronic issue for him. We will back off his blood pressure medicine make sure he does not get hypotensive Pulmonary hypertension Permanent atrial fibrillation Full anticoagulation. History diastolic heart failure He is taking anticoagulation for his atrial fibrillation. He is not having any bleeding problems or other issues with that at this time. He has had diastolic heart failure was very aggressively diuresed perhaps on that led to his hypotension and postural changes. With There is nothing to suggest acute heart failure at this time There is nothing to suggest significant arrhythmic issues at this time There is nothing suggesting acute coronary syndrome I have answered all his questions. Plan: 11/06/16 11:28 Subjective: He has no new complaints today He is not having chest pain or chest tightness He has no shortness of breath He is not lightheaded or dizzy He does not appear to have a very good memory. When I asked him why he is here he does not know. He did say that his son brought him in. I asked him what was bothering him and he has had nothing bothers him except being here. He is not having orthopnea or shortness of breath. He is not having edema He is not having fever chills cough He is not having palpitations Has no focal neurologic complaints. He is not having headache. Objective: Vital Signs Temp Pulse Resp BP Pulse Ox 36.4 C 62 17 115/58 L 99 11/06/16 08:00 11/06/16 08:00 11/06/16 08:00 11/06/16 08:00 11/06/16 08:00 Laboratory Results 11/05/16 07:25 11/06/16 04:21 11/05/16 11/06/16 11/07/16 05:59 05:59 05:59 Intake Total 2576 Output Total 175 775 100 Balance -175 1801 -100 Physical Exam - Physical Exam General Appearance: alert Respiratory: rhonchi Cardiac/Chest: systolic murmur, No JVD Abdomen: non-tender, soft, No organomegaly Skin: warm/dry Extremities: No pedal edema, No calf tenderness Neuro/Psych: normal mood/affect, other (Poor hearing) ICD10 Worksheet Patient Problems: Problems Problem Status Onset Chest pain Acute Nausea Acute Syncope Acute Bilateral pleural effusion Acute CHF (congestive heart failure) Acute Hernia Acute Pneumonia Acute chronic disease mgmt/transitional care Acute
[2016-11-06 12:53] VITALS: RESP 18
--- NOTE | 2016-11-06 13:31 | PDIAF ---
- Diagnosis Diagnosis: orthostatic hypotension Code Status: Full Code - Medication Management Discharge Medications: Medications to Continue on Transfer Atorvastatin Calcium [Lipitor 10 mg (*)] 10 mg PO HS 11/04/16 [Last Taken Unknown] Calcium Carbonate [Tums 500MG (*)] 500 mg PO Q8 PRN 11/04/16 [Last Taken Unknown ] Dabigatran Etexilate Mesyl [Pradaxa 150 MG (*)] 150 mg PO BID 11/04/16 [Last Taken Unknown] Duloxetine HCl [Cymbalta] 80 mg PO HS 11/04/16 [Last Taken Unknown] Ergocalciferol [Vitamin D2 (*)] 50,000 unit PO .[id number] 11/04/16 [Last Taken Unknown] Metoprolol Tartrate [Lopressor 25 mg (*)] 25 mg PO BID 11/04/16 [Last Taken Unknown] Omeprazole [Prilosec 20 mg] 20 mg PO DAILY 11/04/16 [Last Taken Unknown] Sodium Cl Nasal [[place] (*)] 2 spray NS BID PRN 11/04/16 [Last Taken Unknown] Triamcinolone 0.1% [Triamcinolone 0.1% Cream (*)] 1 emily LEFTEAR BID 11/04/16 [ Last Taken Unknown] guaiFENesin [Mucinex 600 MG (*)] 1,200 mg PO BID 11/04/16 [Last Taken Unknown] oxyCODONE IR [Oxycodone Ir (*)] 5 mg PO Q3 PRN 11/04/16 [Last Taken Unknown] Furosemide [Lasix 20 MG (*)] 20 mg PO DAILY #30 tab 11/06/16 [Last Taken Unknown ] Discharge Medications: Refer to the Discharge Home Medication list for PRN reason. - Orders Services needed: Physical Therapy, Occupational Therapy Diet Recommendation: no restrictions on diet Carmelo Stockings Discontinue Date: support hose daily Additional: conservative management of orthostatic hypotension - compression hose, slow rising, maintain hydration - Follow Up Care Current Providers and Referrals: Patient,NotPresent [Unknown] - As per Instructions
[2016-11-06 16:31] VITALS: BP 143/81; PULSE 55; TEMP 97.1; O2SAT 94
--- NOTE | 2016-11-06 16:45 | ASMTCMCOM ---
CM Note CM Note Notes: Today Pt. ready to d/c to [facility]. Due to Pt. being admitted to [facility] from [facility], does not need 3 midnight stay. SWer spoke w/ son and MDPOA Nadir . Nadir is good with plan to return to [facility] today. Let him also know about 17:00 pick-up. Hard faxed d/c paperwork due to no liaisons or admissions staff available today. Faxed to Magi Salgado RN [phone]. Date Signed: 11/06/2016 04:44 PM Electronically Signed By:Lena Flores LCSW
--- NOTE | 2016-11-06 23:49 | GDS ---
[f rep st] DISCHARGE SUMMARY DISCHARGE DIAGNOSES: 1. Orthostatic hypotension with presyncope. 2. Hypovolemia due to fluid restriction and diuretics. 3. Permanent atrial fibrillation with pacemaker. 4. Hypertension. 5. Chronic diastolic congestive heart failure. 6. Benign prostatic hypertrophy. 7. Coronary artery disease with previous stents. HISTORY: The patient is an 81-year-old male who presented with a presyncopal episode. He had recent ly had his diuretics increased and presented after a presyncopal event. He improved with some IV flu id. He does have persistent orthostatic hypotension. However on post hydration, I do suspect there is a chronic element of chronic orthostasis due to autonomic insufficiency and this needs to be an on going consideration with his management. During this hospitalization, we have decreased his diuretic s and discontinued his Norvasc. Probably need to run his blood pressure a little higher. We also he ld his Flomax. Hopefully with conservative measures, his orthostatic hypotension can be managed to a point of not requiring any further medications, although midodrine or Florinef could be considered i n the future. He [facility]. DISCHARGE MEDICATIONS: Please see computer record for full detailed list. New medication changes: Lasix decreased to 20 mg p.o. daily. Norvasc 2.5 mg p.o. daily discontinued. Flomax 0.4 mg p.o. emily ly discontinued. ADDITIONAL DISCHARGE INSTRUCTIONS: 1. Conservative management of orthostatic hypotension including compression hose, slow rising from a lying position, and maintaining hydration as the goals of therapy. 2. Return to [facility]. Greater than 30 minutes' time was spent arranging this discharge. Patient was seen and examined by lindsey fernandez on the day of discharge. /[id number]/MODL
--- NOTE | 2016-11-07 10:57 | ASDISCHSUM ---
Discharge Information Plan Status:SNF Medically Cleared to Leave:11/06/2016 Discharge Date:11/06/2016 05:14 PM CM D/C Disposition:Custodial Facility ADT D/C Disposition:Home Health Service Projected Discharge Date:11/06/2016 12:00 AM Transportation at D/C:Wheelchair Van Discharge Delay Reason: Follow-Up Date:11/06/2016 12:00 AM Discharge Slot: Final Diagnosis: Placement Information Patient Contact Information Contact Name:ISA Relationship:Son Address:[address] City:[place] Alternate Phone: [facility]/Zip Code:[place] [address] Email: Financial Information Financial Class: Primary Plan Desc:MEDICARE OUTPATIENT Primary Plan Number:[id number] Secondary Plan Desc: OUT OF STATE INDEMNITY Secondary Plan Number:[id number] Assessment Information [facility] CM Progress Note CM Note CM Note Notes: CM reviewed chart, pt is a 81 y/o male admitted w/ pre-syncope from [facility]. Pt is hard of hearing, relies on [employer] for communication, has h/o dementia. Quinton Schmitz [facility] [phone]. Pt recently discharged from [facility] on 10/21/16 for CHF and pneumonia to [facility] rehab. Pt resides at [facility] in [place]. [facility] therapy evals ordered, cm awaiting recommendations Case Management d/c poc: Anticipate return to [facility] when medically stable. Case Management to follow. Date Signed: 11/05/2016 12:39 PM Electronically Signed By:ROSIE Morales [facility] CM Progress Note CM Note CM Note Notes: Today Pt. ready to d/c to [facility]. Due to Pt. being admitted to [facility] from [facility], does not need 3 midnight stay. SWer spoke w/ son and MDPOA Nadir . Nadir is good with plan to return to [facility] today. Let him also know about 17:00 pick-up. Hard faxed d/c paperwork due to no liaisons or admissions staff available today. Faxed to Magi Salgado RN [phone]. Date Signed: 11/06/2016 04:44 PM Electronically Signed By:Lena Flores LCSW Intervention Information Intervention Type:*HANSEL-Signed Date of Service:11/05/2016 10:13 AM Patient Type:Observation Staff Member:Latasha Rivera Hours: Discipline: Severity: Comment:
== END 2016-11-06 17:14 | disposition home health service (06) | DRG 312 ==
LOC: EDUNIT# → F2W 18:07 → OBSVTOIN 18:38
PROVIDERS: ADMIT Hospitalist; ATTEND Hospitalist
DX: I95.1 Orthostatic hypotension (principal); I11.0 Hypertensive heart disease with heart failure; I50.32 Chronic diastolic (congestive) heart failure; E86.1 Hypovolemia; I48.2 Chronic atrial fibrillation; N40.0 Benign prostatic hyperplasia without lower urinary tract symptoms; I25.10 Atherosclerotic heart disease of native coronary artery without angina pectoris; E78.5 Hyperlipidemia, unspecified; Z95.5 Presence of coronary angioplasty implant and graft; Z95.0 Presence of cardiac pacemaker; Z85.820 Personal history of malignant melanoma of skin
CPT/HCPCS: 82947-QW; 97116-GP; 97161-GP; 97165-GO; 97530-GP; 97535-GO; G8978-GP-CJ; G8979-GP-CI; G8987-GO-CJ; G8988-GO-CJ; G8989-GO-CJ

== ENCOUNTER 2016-12-17 20:35 | Emergency (ER) | payer OTHER, BC ==
--- NOTE | 2016-12-17 20:45 | EDPHY ---
H & P HPI/ROS: HPI Mechanical trip and fall head strike, on Pradaxa HISTORY OF PRESENT ILLNESS: This patient very pleasant 81-year-old male history of AFib on Pradaxa. He presents emergency room by EMS from [facility]. He took a mechanical trip and fall. He was getting out of his chair to go to bed this evening. He usually uses a walker to ambulate he lost his balance towards his right side with head strike against TV consult. No LOC. He denies any significant complaints except for pain at his localized skin tears bilaterally was up his arms. Denies any chest pain or shortness of breath. Denies syncope. Denies significant head or neck pain. Does report head strike. Past Medical History: AFib, hypertension, skin cancer left ear Past Surgical History: No recent surgery Social History: Resides at [facility] Family History: Noncontributory ROS REVIEW OF SYSTEMS: A comprehensive 10 point review of systems is otherwise negative aside from elements mentioned in the history of present illness. Exam Constitutional appears well nontoxic, hard of hearing, triage nursing summary reviewed, vital signs reviewed, awake/alert. Eyes normal conjunctivae and sclera, EOMI, PERRLA. HENT head/neck: Atraumatic exam however left earlobe and your externally shows some dry blood with some fibrin is slow off consistent with treatment of a his ear cancer skin cancer, otherwise no significant scalp hematoma are in midline cervical spine pain, moist mucus membranes, no epistaxis, neck supple/ no meningismus, no raccoon eyes. Respiratory clear to auscultation bilaterally, normal breath sounds, no respiratory distress, no wheezing. Cardiovascular rate normal, regular rhythm, no murmur, no edema, distal pulses normal. Gastrointestinal soft, non-tender, no rebound, no guarding, normal bowel sounds, no distension, no pulsatile mass. Genitourinary no CVA tenderness. Musculoskeletal no midline vertebral tenderness, full range of motion, no calf swelling, no tenderness of extremities, no meningismus, good pulses, neurovascularly intact. Skin bilateral upper extremity skin tears to bilateral upper extremities. No laceration. Full range of motion of both upper extremities. Neurologic awake, alert and oriented x 3, AAOx3, moves all 4 extremities equally, motor intact, sensory intact, CN II-XII intact, normal cerebellar, normal vision, normal speech. Psychiatric normal mood/affect. Heme/Lymph/Immune no lymphadenopathy. Differential Diagnosis: Includes but is not limited to in a particular order mechanical trip and fall, multiple contusions, skin tears, intracranial bleed, skull fracture. Cervical spine injury. Medical Decision Making: Plan for this patient clean his skin tears. Dress his wounds. CT scan head and neck for trauma. Re-evaluation: ED CT scan head and neck without contrast for trauma is negative for acute traumatic injury no bleed. No fracture. ED x-ray chest one view interpreted by myself. Cardiomegaly however stable. No acute traumatic injury. 2123 CT scan results called to me negative for acute traumatic injury by Dr. Liao. Plan will be for this patient go home. He otherwise has no focal complaints. Denies syncope. Denies chest pain shortness of breath. Source: Patient, EMS - Medical/Surgical History Hx Asthma: No Hx Chronic Respiratory Disease: No Hx Diabetes: No Hx Cardiac Disease: Yes Hx Renal Disease: No Hx Cirrhosis: No Hx Alcoholism: No Hx HIV/AIDS: No Hx Splenectomy or Spleen Trauma: No Other PMH: INGUINAL HERNIA SURG/TB LOBECTOMY/PACEMAKER, afib /cardiac STENTS, SHINGLES, ORIF RIGHT HIP.skin cancer l inner ear, recieving tx - Social History Smoking Status: Never smoked Constitutional: Initial Vital Signs Temperature (C) 36.5 C 12/17/16 20:35 Heart Rate 70 12/17/16 20:35 Respiratory Rate 16 12/17/16 20:35 Blood Pressure 143/70 H 12/17/16 20:35 O2 Sat (%) 96 12/17/16 20:35 O2 Delivery Mode Room Air Allergies/Adverse Reactions: clopidogrel bisulfate [From Plavix] Allergy (Verified 12/17/16 20:49) Unknown Corticosteroids (Glucocorticoids) Allergy (Verified 12/17/16 20:49) Unknown meperidine Allergy (Verified 12/17/16 20:49) Unknown meperidine HCl [From Demerol] Allergy (Verified 12/17/16 20:49) Unknown prednisone Allergy (Verified 12/17/16 20:49) Unknown Sulfa (Sulfonamide Antibiotics) Allergy (Verified 12/17/16 20:49) Unknown thiethylperazine Allergy (Verified 12/17/16 20:49) ticlopidine HCl [From Ticlid] Allergy (Verified 12/17/16 20:49) Home Medications: Medication Instructions Recorded Atorvastatin Calcium [Lipitor 10 10 mg PO HS 11/04/16 mg (*)] Calcium Carbonate [Tums 500MG (*)] 500 mg PO Q8 PRN 11/04/16 Dabigatran Etexilate Mesyl 150 mg PO BID 11/04/16 [Pradaxa 150 MG (*)] Duloxetine HCl [Cymbalta] 80 mg PO HS 11/04/16 Ergocalciferol [Vitamin D2 (*)] 50,000 unit PO .[id number] 11/04/16 Metoprolol Tartrate [Lopressor 25 25 mg PO BID 11/04/16 mg (*)] Omeprazole [Prilosec 20 mg] 20 mg PO DAILY 11/04/16 Sodium Cl Nasal [Mertens Beauty (*)] 2 spray NS BID PRN 11/04/16 Triamcinolone 0.1% [Triamcinolone 1 emily LEFTEAR BID 11/04/16 0.1% Cream (*)] guaiFENesin [Mucinex 600 MG (*)] 1,200 mg PO BID 11/04/16 oxyCODONE IR [Oxycodone Ir (*)] 5 mg PO Q3 PRN 11/04/16 Furosemide [Lasix 20 MG (*)] 20 mg PO DAILY #30 tab 11/06/16 Amlodipine Besylate [Norvasc] 5 mg PO 12/17/16 Gabapentin 600 mg PO 12/17/16 Omeprazole 20 mg PO 12/17/16 Departure - Departure Disposition: Home, Routine, Self-Care Clinical Impression: Skin tear Fall Qualifiers: Encounter type: initial encounter Qualified Code(s): W19.XXXA - Unspecified fall, initial encounter Condition: Good Instructions: Fall Prevention for Older Adults (ED), Skin Tear (ED) Additional Instructions: 1. Return emergency room if develops any worsening symptoms questions or concerns. Referrals: Patient,NotPresent [Primary Care Provider] - As per Instructions
[2016-12-17 21:46] VITALS: BP 136/74; PULSE 68; RESP 18; TEMP 98.1; O2SAT 95
== END 2016-12-17 21:47 | disposition home or self-care (01) ==
LOC: EDUNIT#
DX: S41.111A Laceration without foreign body of right upper arm, initial encounter (principal); S41.112A Laceration without foreign body of left upper arm, initial encounter; I10 Essential (primary) hypertension; Z85.828 Personal history of other malignant neoplasm of skin; Z95.0 Presence of cardiac pacemaker; W01.198A Fall on same level from slipping, tripping and stumbling with subsequent striking against other object, initial encounter; Y92.89 Other specified places as the place of occurrence of the external cause; Y99.8 Other external cause status; Y93.89 Activity, other specified

== ENCOUNTER 2017-03-01 19:21 | Inpatient (IN) | payer OTHER, BC ==
--- NOTE | 2017-03-01 19:34 | EDPHY ---
H & P Time Seen by Provider: 03/01/17 19:22 HPI/ROS: CHIEF COMPLAINT: Decreased level of activity HISTORY OF PRESENT ILLNESS: The patient had norovirus 1 week ago and presents from [facility]. He is here because he was sent for decreased strength and decreased level of alertness and low oxygen saturation. Patient is very hard of hearing and denies any complaints on arrival. Specifically denies abdominal or chest pain or trouble breathing. He thinks he is a little bit weak. Nothing focal. No headache. He says he is feeling weaker. REVIEW OF SYSTEMS: Eye: no change in vision ENT: no sore throat Cardiac: no chest pain or syncope Pulmonary: Cough but no hemoptysis Abdomen: no vomiting, or abdominal pain, but had norovirus 1 week ago with diarrhea. Musculoskeletal: no back pain Skin: no rash Neuro: no headache Constitutional: no fever : no urinary symptoms A comprehensive 10 point review of systems is otherwise negative aside from elements mentioned in the history of present illness, but history and review of systems limited by the patient's dementia. PAST MEDICAL HISTORY: Includes heart failure, Parkinson's, dementia, zoster, hyperlipidemia, depression, hypertension, atrial fibrillation Social history: From [facility], his son arrives and is with him. General Appearance: Patient is alert but very hard of hearing. He does follow commands. Eyes: No scleral icterus. ENT, Mouth: Normal mucous membranes. Respiratory: Decreased breath sounds bilaterally. Cardiovascular: Regular rate and rhythm. Gastrointestinal: Abdomen is soft and non tender. Slightly distended but nontender and bowel sounds present. Neurological: Patient will follow commands. His face is symmetric. He can move all 4 extremities. Skin: Multiple areas of what looked like excoriated skin rash in the face and both arms but no evidence of cellulitis or warmth or tenderness or pus. Musculoskeletal: No peripheral edema. Psychiatric: Not agitated. Emergency Department course/MDM: Plan for chest x-ray as well as labs and EKG. Respiratory panel. Lactate screening 2038: Similar to previous chest xray per [place], reviewed with him. Discussed with son at this time. Patient needs to be admitted for severe weakness, can't sit up or stand or walk , unable to be at assisted living at this time. Smoking Status: Never smoked Constitutional: Initial Vital Signs Temperature (C) 36.6 C 03/01/17 19:26 Heart Rate 60 03/01/17 19:26 Respiratory Rate 18 03/01/17 19:26 Blood Pressure 115/65 03/01/17 19:26 O2 Sat (%) 90 L 03/01/17 19:26 O2 Delivery Mode Room Air Allergies/Adverse Reactions: clopidogrel bisulfate [From Plavix] Allergy (Verified 12/17/16 20:49) Unknown Corticosteroids (Glucocorticoids) Allergy (Verified 12/17/16 20:49) Unknown meperidine Allergy (Verified 12/17/16 20:49) Unknown meperidine HCl [From Demerol] Allergy (Verified 12/17/16 20:49) Unknown prednisone Allergy (Verified 12/17/16 20:49) Unknown Sulfa (Sulfonamide Antibiotics) Allergy (Verified 12/17/16 20:49) Unknown thiethylperazine Allergy (Verified 12/17/16 20:49) ticlopidine HCl [From Ticlid] Allergy (Verified 12/17/16 20:49) Home Medications: Medication Instructions Recorded Metoprolol Tartrate [Lopressor 25 25 mg PO BID 11/04/16 mg (*)] Omeprazole [Prilosec 20 mg] 20 mg PO HS 11/04/16 Triamcinolone 0.1% [Triamcinolone 1 emily LEFTEAR BID 11/04/16 0.1% Cream (*)] guaiFENesin [Mucinex 600 MG (*)] 1,200 mg PO BID 11/04/16 oxyCODONE IR [Oxycodone Ir (*)] 5 mg PO Q3 PRN 11/04/16 Apixaban [Eliquis] 5 mg PO BID 03/01/17 Atorvastatin Calcium [Lipitor 10 10 mg PO HS 03/01/17 mg (*)] Calcium Carbonate [Tums 500MG (*)] 500 mg PO Q8H PRN 03/01/17 Cholecalciferol Vit D3 [Vitamin D3 50,000 unit PO Q14D 03/01/17 (*)] DULoxetine [Cymbalta 20 MG (RX)] 80 mg PO HS 03/01/17 Furosemide [Lasix 40 MG (*)] 40 mg PO DAILY 03/01/17 Gabapentin [Neurontin 300 MG (*)] 300 mg PO DAILY@08 03/01/17 Gabapentin [Neurontin 300 MG (*)] 600 mg PO DAILY@16,22 03/01/17 Polyethylene Glycol 3350 [Miralax 17 gm PO DAILY 03/01/17 17 gm (*)] amLODIPine BESYLATE [Norvasc 5 mg 5 mg PO DAILY 03/01/17 (*)] oxyCODONE IR [Oxycodone Ir (*)] 5 mg PO HS 03/01/17 Medical Decision Making - Diagnostics EKG Interpretation: 12-lead EKG interpreted by me; official reading is in trace master. My interpretation is ventricular pacing rate of 60. Imaging Results: Imaging Impressions Chest X-Ray 03/01/17 19:32 Impression: 1. Minimally worse right basilar consolidation, likely compressive atelectasis due to chronic loculated right basilar pleural effusion. 2. Minimal cardiomegaly, unchanged. No acute failure. Differential Diagnosis: Differential for weakness considered including but not limited to dehydration, metabolic abnormality, pneumonia, acute coronary syndrome, sepsis Consult/Admit Bed Type: [place] [address] - Data Points Laboratory Results: Laboratory Results 03/01/17 19:30 03/01/17 19:30 03/01/17 03/01/17 03/01/17 19:30 19:30 19:30 WBC 10.25 10^3/uL H 10^3/uL (3.80-9.50) RBC 3.70 10^6/uL L 10^6/uL (4.40-6.38) Hgb 11.3 g/dL L g/dL (13.7-17.5) Hct 34.0 % L % (40.0-51.0) MCV 91.9 fL fL (81.5-99.8) MCH 30.5 pg pg (27.9-34.1) MCHC 33.2 g/dL g/dL (32.4-36.7) RDW 15.1 % % (11.5-15.2) Plt Count 238 10^3/uL 10^3/uL (150-400) MPV 9.8 fL fL (8.7-11.7) Neut % (Auto) 77.3 % H % (39.3-74.2) Lymph % (Auto) 8.1 % L % (15.0-45.0) [place] % (Auto) 9.0 % % (4.5-13.0) Eos % (Auto) 3.3 % % (0.6-7.6) Baso % (Auto) 1.4 % % (0.3-1.7) Nucleat RBC Rel Count 0.0 % % (0.0-0.2) Absolute Neuts (auto) 7.93 10^3/uL H 10^3/uL (1.70-6.50) Absolute Lymphs (auto) 0.83 10^3/uL L 10^3/uL (1.00-3.00) Absolute Monos (auto) 0.92 10^3/uL H 10^3/uL (0.30-0.80) Absolute Eos (auto) 0.34 10^3/uL 10^3/uL (0.03-0.40) Absolute Basos (auto) 0.14 10^3/uL H 10^3/uL (0.02-0.10) Absolute Nucleated RBC 0.00 10^3/uL 10^3/uL (0-0.01) Immature Gran % 0.9 % % (0.0-1.1) Immature Gran # 0.09 10^3/uL 10^3/uL (0.00-0.10) PT 20.6 SEC H SEC (12.0-15.0) INR 1.76 H (0.83-1.16) APTT 37.9 SEC SEC (23.0-38.0) VBG Lactic Acid Sodium 138 mEq/L mEq/L (135-145) Potassium 4.7 mEq/L mEq/L (3.5-5.2) Chloride 99 mEq/L mEq/L (97-110) Carbon Dioxide 28 mEq/l mEq/l (22-31) Anion Gap 11 mEq/L mEq/L (8-16) BUN 28 mg/dL H mg/dL (7-23) Creatinine 0.8 mg/dL mg/dL (0.7-1.3) Estimated GFR > 60 Glucose 166 mg/dL H mg/dL (70-100) Calcium 8.9 mg/dL mg/dL (8.5-10.4) Total Bilirubin 2.2 mg/dL H mg/dL (0.1-1.4) Conjugated Bilirubin 0.5 mg/dL mg/dL (0.0-0.5) Unconjugated Bilirubin 1.7 mg/dL H mg/dL (0.0-1.1) 03/01/17 19:30 WBC RBC Hgb Hct MCV MCH MCHC RDW Plt Count MPV Neut % (Auto) Lymph % (Auto) [place] % (Auto) Eos % (Auto) Baso % (Auto) Nucleat RBC Rel Count Absolute Neuts (auto) Absolute Lymphs (auto) Absolute Monos (auto) Absolute Eos (auto) Absolute Basos (auto) Absolute Nucleated RBC Immature Gran % Immature Gran # PT INR APTT VBG Lactic Acid 1.9 mmol/L mmol/L (0.7-2.1) Sodium Potassium Chloride Carbon Dioxide Anion Gap BUN Creatinine Estimated GFR Glucose Calcium Total Bilirubin Conjugated Bilirubin Unconjugated Bilirubin Departure - Departure Disposition: [facility] Acute Clinical Impression: Weakness Condition: Good
[2017-03-01 19:40] LABS: PLATELET COUNT 238 10^3/uL (150-400)
--- NOTE | 2017-03-01 19:48 | CPEKG ---
Heart Rate: 60 RR Interval: 1000 P-R Interval: 184 QRSD Interval: 150 QT Interval: 468 QTC Interval: 468 P [place]: 0 QRS [place]: -77 T Wave [place]: 95 EKG Severity - ABNORMAL ECG - EKG Impression: VENTRICULAR-PACED COMPLEXES EKG Impression: NONSPECIFIC IVCD WITH LAD Electronically Signed By: Gregory Vaughn 01-Mar-2017 20:13:11
[2017-03-01 19:53] LABS: INR 1.76 (0.83-1.16); PROTIME(PATIENT) 20.6 SEC (12.0-15.0)
[2017-03-01] MEDS ORDERED: NS 1,000 ML IV ONE (22:13)
[2017-03-01] MEDS ORDERED: ACETAMINOPHEN 325 MG TAB PO PRN (22:27)
[2017-03-01] MEDS ORDERED: ONDANSETRON 4 MG/2 ML VIAL IVP PRN (22:27)
[2017-03-01] MEDS ORDERED: ONDANSETRON DISINTEGRATING 4 MG TAB PO PRN (22:27)
--- NOTE | 2017-03-01 22:48 | GHP ---
[f rep st] HISTORY AND PHYSICAL DATE OF ADMISSION: 03/01/2017 CHIEF COMPLAINT: Weakness, recent diagnosis of norovirus. HISTORY OF PRESENT ILLNESS: This is an 81-year-old male who lives in assisted living. He was diagno sed with norovirus a week ago. He has been having persistent diarrhea. His baseline abilities are b eing able to transfer from a wheelchair to a walker and then getting into bed. He has been unable to do that lately. His oxygen levels were also noted to be a little bit low there as well. He denies any abdominal pain. No chest pain or shortness of breath. No lower extremity edema. No PND or orth opnea. REVIEW OF SYSTEMS: A limited review of systems was obtained secondary to patient's deafness. Pertin ent positives and negatives in the HPI. PAST MEDICAL HISTORY: 1. Coronary artery disease. 2. Atrial fibrillation. 3. CHF. 4. Remote history of tuberculosis. 5. Squamous cell carcinoma, left ear. 6. Deafness. 7. Pacemaker. SOCIAL HISTORY: Lives in assisted living. No smoking. FAMILY HISTORY: Both parents are . PHYSICAL EXAM: VITAL SIGNS: Afebrile, blood pressure is 137/76, heart rate 60, oxygen saturation 91 % on room air. GENERAL: The patient is well-developed, in no apparent distress. HEENT: Nonicteric sclerae. Extraocular movements intact. Dry mucous membranes. NECK: Supple. No thyromegaly. USMAN GS: Good effort. Clear to auscultation bilaterally. CARDIOVASCULAR: Regular rate and rhythm. No murmurs, gallops. ABDOMEN: Positive bowel sounds. Soft, nontender, nondistended. No hepatosplenom egaly. EXTREMITIES: No clubbing, cyanosis, or edema. SKIN: No rash. NEUROLOGIC: Alert and orien ji x3. Moving all 4 extremities equally. PSYCH: Normal affect. LABS: White blood cell count is 10, hemoglobin 11, platelets are 238. Chemistry: Sodium 138, potas sium 4.7, creatinine 0.8, albumin 2.2, 0.7. EKG personally reviewed and interpreted. Paced rhythm. RADIOLOGY: Chest x-ray personally reviewed and interpreted. Possibly atelectasis right base. ASSESSMENT: This is an 81-year-old male presenting with weakness after norovirus. PLAN: 1. Weakness. Physical therapy. 2. Recent norovirus. Will see what his diarrhea is like, if he needs any treatment. Give IV fluids . 3. History of congestive heart failure. Will monitor with fluid intake. 4. Mild hypoxia. This is quite mild. Monitor. Chest x-ray just shows atelectasis. No evidence of pneumonia. 5. History of coronary artery disease. 6. History of atrial fibrillation. 7. Patient is full code. /[id number]/MODL
[2017-03-02] MEDS: NS 1,000 ML IV SCH ×2 (00:05→12:46)
[2017-03-02] MEDS: oxyCODONE IR 5 MG TAB PO PRN ×2 (00:43→08:42)
[2017-03-02] MEDS: amLODIPine BESYLATE 5 MG TAB PO SCH (08:40)
[2017-03-02] MEDS: guaiFENesin 600 MG TAB.ER PO SCH ×2 (08:40→20:16)
[2017-03-02] MEDS: GABAPENTIN 300 MG CAP PO SCH ×4 (08:41→22:57)
[2017-03-02] MEDS: APIXABAN 5 MG TAB PO SCH ×2 (08:41→20:18)
[2017-03-02] MEDS: TRIAMCINOLONE 0.1% 15 GM CRTUBE TP SCH ×2 (08:44→20:22)
[2017-03-02] MEDS: METOPROLOL TARTRATE 25 MG TAB PO SCH ×2 (08:45→20:18)
--- NOTE | 2017-03-02 10:08 | HOSPPROG ---
Hospitalist Progress Note Objective: Vital Signs Temp Pulse Resp BP Pulse Ox 36.6 C 60 16 118/62 95 03/02/17 07:44 03/02/17 08:45 03/02/17 07:44 03/02/17 08:45 03/02/17 07:44 03/01/17 03/02/17 03/03/17 06:59 06:59 06:59 Intake Total 1125 Output Total 350 Balance 775 PT 20.6 SEC (12.0-15.0) H 03/01/17 19:30 INR 1.76 (0.83-1.16) H 03/01/17 19:30 ICD10 Worksheet Patient Problems: Problems Problem Status Onset Weakness Acute Bilateral pleural effusion Acute CHF (congestive heart failure) Acute Chest pain Acute Hernia Acute Nausea Acute Pneumonia Acute Syncope Acute chronic disease mgmt/transitional care Acute
--- NOTE | 2017-03-02 10:24 | HOSPPROG ---
Hospitalist Progress Note Assessment/Plan: DIAGNOSES: -generalized weakness and deconditioning, impaired mobility, all acute on top of severe chronic disabilities -acute dehydration due to GI fluid losses -ongoing diarrhea of norovirus infection -pre renal azotemia -hyperglycemia, question if due to acute illness or if he is developing some diabetes -history of CHF and see CAD, all stable at this time -history of AFib on chronic anticoagulation PLANS: Continue IV hydration Physical occupational therapy assessments Fall risk precautions Continue his usual cardiac medications including anticoagulation Recheck renal function daily while here Check hemoglobin A1c SUBJECTIVE: Patient states he feels fine, though he never noticed that he was having any problems at all even yesterday. He does not recall having diarrhea or neuro virus diagnosis. States he is eating well no nausea Denies any abdominal pain or fever symptoms OBJECTIVE Vitals reviewed: Stable without fever Circulator, my review: Exam: alert oriented skin warm dry color ok resps not labored lungs clear BSs heart regular abd soft nondistended nontender, bowel sounds present limbs warm, no edema iv site ok I reviewed yesterday's laboratory data, there was not a repeat of his laboratory studies tests today Objective: Vital Signs Temp Pulse Resp BP Pulse Ox 36.6 C 60 16 118/62 95 03/02/17 07:44 03/02/17 08:45 03/02/17 07:44 03/02/17 08:45 03/02/17 07:44 03/01/17 03/02/17 03/03/17 06:59 06:59 06:59 Intake Total 1125 Output Total 350 Balance 775 PT 20.6 SEC (12.0-15.0) H 03/01/17 19:30 INR 1.76 (0.83-1.16) H 03/01/17 19:30 ICD10 Worksheet Patient Problems: Problems Problem Status Onset Weakness Acute Bilateral pleural effusion Acute CHF (congestive heart failure) Acute Chest pain Acute Hernia Acute Nausea Acute Pneumonia Acute Syncope Acute chronic disease mgmt/transitional care Acute
--- NOTE | 2017-03-02 13:18 | PDMN ---
Medical Necessity Medical necessity: est los>2mn for persistent diarrhea r/t norovirus, inability to perform limited baseline activities of tx w/c to walker to bed, and hypoxia; admit for IVF, PT/OT; comorbid chf, cad, and afib; per order and H&P 03/01/17
--- NOTE | 2017-03-02 16:14 | ASMTCMCOM ---
CM Note CM Note Notes: Patient admitted for weakness d/t Norovirus. He is being treated supportively. Patient normally resides at [facility]. He was at [facility] in October and then went back to [facility] with home care. He also has a personal lines appraiser 3x week hired by his family. I spoke with his daughter in law Marylou who could not remember the name of the home care agency but said that [facility] would know. Contacts at [facility] are Marisol (head of custodial), and his RNs Nina and Viry. Patient's DIL said that if [facility] requires patient to increase level of assistance there, family is ok with it. They are also ok with him going to [facility], although patient does not like the food there. Marylou says that patient will defer to [facility] and his son Nadir's recommendations. Today's PT eval recommends home with home care. No OT eval today. Case Managment will continue to work with patient, family, and therapists to formulate a safe discharge plan. Date Signed: 03/02/2017 04:14 PM Electronically Signed By:Bella John RN
[2017-03-02] MEDS: oxyCODONE IR 5 MG TAB PO SCH (20:16)
[2017-03-02] MEDS: ATORVASTATIN CALCIUM 10 MG TAB PO SCH (20:18)
[2017-03-02] MEDS: PANTOPRAZOLE SODIUM 40 MG TAB PO SCH (20:25)
[2017-03-02] MEDS: DULoxetine 20 MG CAP PO SCH (20:25)
[2017-03-03 05:27] LABS: PLATELET COUNT 221 10^3/uL (150-400)
[2017-03-03] MEDS: guaiFENesin 600 MG TAB.ER PO SCH ×2 (07:50→20:31)
[2017-03-03] MEDS: amLODIPine BESYLATE 5 MG TAB PO SCH (07:50)
[2017-03-03] MEDS: GABAPENTIN 300 MG CAP PO SCH ×3 (07:50→21:53)
[2017-03-03] MEDS: METOPROLOL TARTRATE 25 MG TAB PO SCH ×2 (07:51→20:31)
[2017-03-03] MEDS: APIXABAN 5 MG TAB PO SCH ×2 (07:51→20:31)
--- NOTE | 2017-03-03 12:46 | ASMTCMCOM ---
CM Note CM Note Notes: Spoke with Nina at [facility] ([phone]) about pt's HC. He is current with [facility]. Faxed them clinicals. PT/OT rec back to [facility] with increased care rather than SNF. CM will continue to follow for DC needs. Date Signed: 03/03/2017 12:45 PM Electronically Signed By:Alanna Peoples LCSW
[2017-03-03] MEDS: TRIAMCINOLONE 0.1% 15 GM CRTUBE TP SCH ×2 (13:34→21:43)
--- NOTE | 2017-03-03 18:01 | HOSPPROG ---
Hospitalist Progress Note Assessment/Plan: DIAGNOSES: -generalized weakness and deconditioning, impaired mobility, all acute on top of severe chronic disabilities -acute dehydration due to GI fluid losses -ongoing diarrhea of norovirus infection -pre renal azotemia -hyperglycemia, question if due to acute illness or if he is developing some diabetes -history of CHF and see CAD, all stable at this time -history of AFib on chronic anticoagulation Physical occupational therapy notice the patient still to be unstable for during transfers in and out of wheelchair, in and out of bed, onto and off of commode, On to an off of feet He is clearly not safe for returning to his assisted living apartment at this time. 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 Grinder, my review: Exam: alert mildly disoriented looks comfortable skin warm dry color ok resps not labored lungs clear BSs heart regular abd soft nondistended nontender, bowel sounds present limbs warm, no edema iv site ok Lab data: Pre renal azotemia resolve, white blood cell count higher today at 12,000 Objective: Vital Signs Temp Pulse Resp BP Pulse Ox 36.4 C 60 15 124/62 H 89 L 03/03/17 17:46 03/03/17 17:46 03/03/17 17:46 03/03/17 17:46 03/03/17 17:46 Laboratory Results 03/03/17 04:41 03/03/17 04:41 03/02/17 03/03/17 03/04/17 06:59 06:59 06:59 Intake Total 1125 1150 980 Output Total 350 1050 50 Balance 775 100 930 PT 20.6 SEC (12.0-15.0) H 03/01/17 19:30 INR 1.76 (0.83-1.16) H 03/01/17 19:30 ICD10 Worksheet Patient Problems: Problems Problem Status Onset Weakness Acute Bilateral pleural effusion Acute CHF (congestive heart failure) Acute Chest pain Acute Hernia Acute Nausea Acute Pneumonia Acute Syncope Acute chronic disease mgmt/transitional care Acute
[2017-03-03] MEDS: ATORVASTATIN CALCIUM 10 MG TAB PO SCH (20:30)
[2017-03-03] MEDS: DULoxetine 20 MG CAP PO SCH (20:30)
[2017-03-03] MEDS: oxyCODONE IR 5 MG TAB PO SCH (20:30)
[2017-03-03] MEDS: PANTOPRAZOLE SODIUM 40 MG TAB PO SCH (20:31)
[2017-03-03] MEDS: oxyCODONE IR 5 MG TAB PO PRN (20:36)
[2017-03-04] MEDS: METOPROLOL TARTRATE 25 MG TAB PO SCH ×2 (09:43→20:40)
[2017-03-04] MEDS: guaiFENesin 600 MG TAB.ER PO SCH ×2 (09:44→20:39)
[2017-03-04] MEDS: APIXABAN 5 MG TAB PO SCH ×2 (09:44→20:40)
[2017-03-04] MEDS: amLODIPine BESYLATE 5 MG TAB PO SCH (09:44)
[2017-03-04] MEDS: GABAPENTIN 300 MG CAP PO SCH ×3 (09:44→23:19)
[2017-03-04] MEDS: TRIAMCINOLONE 0.1% 15 GM CRTUBE TP SCH ×2 (09:50→23:19)
--- NOTE | 2017-03-04 11:05 | ASMTCMCOM ---
CM Note CM Note Notes: Spoke with pt's dtr-in-law Darleen today ([phone]). Family would now like pt to go to [facility] where he has been in the past for a short stay. Alerted . Faxed referral with [facility]. Pt may DC this weekend. If so, contact darleen. Family in [facility] for the weekend. Date Signed: 03/04/2017 11:05 AM Electronically Signed By:Alanna Peoples LCSW
--- NOTE | 2017-03-04 17:31 | HOSPPROG ---
Hospitalist Progress Note Assessment/Plan: DIAGNOSES: -generalized weakness and deconditioning, impaired mobility, all acute on top of severe chronic disabilities -acute dehydration due to GI fluid losses -ongoing diarrhea of norovirus infection -pre renal azotemia -history of CHF and see CAD, all stable at this time -history of AFib on chronic anticoagulation Physical occupational therapy notice the patient still to be unstable and needing assistance for during transfers in and out of wheelchair, in and out of bed, onto and off of commode, On to an off of feet He is clearly not safe for returning to his assisted living apartment at this time. Continued to have multiple loose stools PLANS: Continue IV hydration Physical occupational therapy assessments Fall risk precautions Continue his usual cardiac medications including anticoagulation SUBJECTIVE: Patient a little bit more focused today and able answer questions. Stooling some loose stool but is eating. No abdominal pain or fever symptoms OBJECTIVE Vitals reviewed: Stable without fever Chemical Plant Technical Director, my review: Exam: alert mildly disoriented looks comfortable skin warm dry color ok resps not labored lungs clear BSs heart regular abd soft nondistended nontender, bowel sounds present limbs warm, no edema iv site ok Objective: Vital Signs Temp Pulse Resp BP Pulse Ox 36.7 C 61 17 115/63 95 03/04/17 15:24 03/04/17 15:24 03/04/17 15:24 03/04/17 15:24 03/04/17 15:24 Laboratory Results 03/03/17 04:41 03/03/17 04:41 03/03/17 03/04/17 03/05/17 06:59 06:59 06:59 Intake Total 1150 1130 472 Output Total 1050 400 380 Balance 100 730 92 PT 20.6 SEC (12.0-15.0) H 03/01/17 19:30 INR 1.76 (0.83-1.16) H 03/01/17 19:30 ICD10 Worksheet Patient Problems: Problems Problem Status Onset Weakness Acute Bilateral pleural effusion Acute CHF (congestive heart failure) Acute Chest pain Acute Hernia Acute Nausea Acute Pneumonia Acute Syncope Acute chronic disease mgmt/transitional care Acute
[2017-03-04] MEDS: oxyCODONE IR 5 MG TAB PO SCH (20:35)
[2017-03-04] MEDS: ATORVASTATIN CALCIUM 10 MG TAB PO SCH (20:39)
[2017-03-04] MEDS: PANTOPRAZOLE SODIUM 40 MG TAB PO SCH (20:40)
[2017-03-04] MEDS: DULoxetine 20 MG CAP PO SCH (20:40)
[2017-03-04 23:18] VITALS: PULSE 60
[2017-03-05] MEDS: oxyCODONE IR 5 MG TAB PO PRN (02:16)
[2017-03-05 10:01] VITALS: RESP 18; O2SAT 98
[2017-03-05] MEDS: amLODIPine BESYLATE 5 MG TAB PO SCH (10:40)
[2017-03-05] MEDS: METOPROLOL TARTRATE 25 MG TAB PO SCH (10:41)
[2017-03-05] MEDS: GABAPENTIN 300 MG CAP PO SCH (10:41)
[2017-03-05] MEDS: APIXABAN 5 MG TAB PO SCH (10:42)
[2017-03-05] MEDS: guaiFENesin 600 MG TAB.ER PO SCH (10:42)
[2017-03-05] MEDS: TRIAMCINOLONE 0.1% 15 GM CRTUBE TP SCH (10:43)
--- NOTE | 2017-03-05 11:30 | HOSPPROG ---
Hospitalist Progress Note Assessment/Plan: 81-year-old admitted with weakness and diarrhea due to norovirus. He currently lives in assisted living. He has improved somewhat but is still quite weak at this time. # general weakness and conditioning with impaired mobility with acute decompensation in the setting of multiple chronic disabilities * Will need skilled rehab after discharge # acute dehydration due to GI fluid losses, diarrhea has improved significantly patient no longer on IV fluids. * Regular discharge # norovirus, improving with decreased diarrhea # coronary artery disease with CHF, stable # AFib on chronic anticoagulation and control. Stable Subjective: Just a minute patient new to me and chart review, no specific complaint today eating and drinking and not on an IV Objective: Vital Signs Temp Pulse Resp BP Pulse Ox 36.9 C 60 18 152/74 H 98 03/05/17 02:16 03/05/17 10:00 03/05/17 10:00 03/05/17 02:16 03/05/17 10:00 Laboratory Results 03/03/17 04:41 03/03/17 04:41 03/04/17 03/05/17 03/06/17 05:59 05:59 05:59 Intake Total 1130 572 Output Total 400 580 Balance 730 -8 PT 20.6 SEC (12.0-15.0) H 03/01/17 19:30 INR 1.76 (0.83-1.16) H 03/01/17 19:30 - Physical Exam Constitutional: no apparent distress, chronically ill appearing Eyes: PERRL Ears, Nose, Mouth, Throat: moist mucous membranes Cardiovascular: regular rate and rhythym Respiratory: no respiratory distress, no rales or rhonchi, clear to auscultation Gastrointestinal: normoactive bowel sounds, soft, non-tender abdomen Genitourinary: no bladder fullness Skin: warm Neurologic: No AAOx3 Psychiatric: interacting appropriately ICD10 Worksheet Patient Problems: Problems Problem Status Onset Syncope Acute Nausea Acute Weakness Acute chronic disease mgmt/transitional care Acute Hernia Acute Bilateral pleural effusion Acute Chest pain Acute Pneumonia Acute CHF (congestive heart failure) Acute
--- NOTE | 2017-03-05 11:57 | PDIAF ---
- Diagnosis Diagnosis: norovirus, weakness, dehydration. chronic afib Code Status: Full Code - Medication Management Discharge Medications: Medications to Continue on Transfer Metoprolol Tartrate [Lopressor 25 mg (*)] 25 mg PO BID 11/04/16 [Last Taken Unknown] Omeprazole [Prilosec 20 mg] 20 mg PO HS 11/04/16 [Last Taken Unknown] Triamcinolone 0.1% [Triamcinolone 0.1% Cream (*)] 1 emily LEFTEAR BID 11/04/16 [ Last Taken Unknown] guaiFENesin [Mucinex 600 MG (*)] 1,200 mg PO BID 11/04/16 [Last Taken Unknown] oxyCODONE IR [Oxycodone Ir (*)] 5 mg PO Q3 PRN 11/04/16 [Last Taken Unknown] Apixaban [Eliquis] 5 mg PO BID 03/01/17 [Last Taken Unknown] Atorvastatin Calcium [Lipitor 10 mg (*)] 10 mg PO HS 03/01/17 [Last Taken Unknown] Calcium Carbonate [Tums 500MG (*)] 500 mg PO Q8H PRN 03/01/17 [Last Taken Unknown] Cholecalciferol Vit D3 [Vitamin D3 (*)] 50,000 unit PO Q14D 03/01/17 [Last Taken Unknown] DULoxetine [Cymbalta] 80 mg PO HS 03/01/17 [Last Taken Unknown] Furosemide [Lasix 40 MG (*)] 40 mg PO DAILY 03/01/17 [Last Taken Unknown] Gabapentin [Neurontin 300 MG (*)] 300 mg PO DAILY@08 03/01/17 [Last Taken Unknown] Gabapentin [Neurontin 300 MG (*)] 600 mg PO DAILY@16,03/01/17 [Last Taken Unknown] Polyethylene Glycol 3350 [Miralax 17 gm (*)] 17 gm PO DAILY 03/01/17 [Last Taken Unknown] amLODIPine BESYLATE [Norvasc 5 mg (*)] 5 mg PO DAILY 03/01/17 [Last Taken Unknown] oxyCODONE IR [Oxycodone Ir (*)] 5 mg PO HS 03/01/17 [Last Taken Unknown] Acetaminophen [Tylenol 325mg (*)] 650 mg PO Q4HRS PRN tab 03/05/17 [Last Taken Unknown] Discharge Medications: Refer to the Discharge Home Medication list for PRN reason. - Orders Services needed: Registered Nurse, Certified Professional Skateboarder, Master Electronic Warfare Operator , Physical Therapy, Occupational Therapy Isolation Type: Contact Isolation, Droplet Isolation Diet Recommendation: no restrictions on diet Diet Texture: Regular Texture Diet - Labs/Radiology BMP Date: 03/07/17 - Follow Up Care Current Providers and Referrals: J Luis Terrell MD [Primary Care Provider] - As per Instructions
--- NOTE | 2017-03-05 12:01 | PDIAF ---
- Diagnosis Diagnosis: norovirus, weakness, dehydration. chronic afib, chronic resp failure Code Status: Limited Resuscitation - Medication Management Discharge Medications: Medications to Continue on Transfer Metoprolol Tartrate [Lopressor 25 mg (*)] 25 mg PO BID 11/04/16 [Last Taken Unknown] Omeprazole [Prilosec 20 mg] 20 mg PO HS 11/04/16 [Last Taken Unknown] Triamcinolone 0.1% [Triamcinolone 0.1% Cream (*)] 1 emily LEFTEAR BID 11/04/16 [ Last Taken Unknown] guaiFENesin [Mucinex 600 MG (*)] 1,200 mg PO BID 11/04/16 [Last Taken Unknown] oxyCODONE IR [Oxycodone Ir (*)] 5 mg PO Q3 PRN 11/04/16 [Last Taken Unknown] Apixaban [Eliquis] 5 mg PO BID 03/01/17 [Last Taken Unknown] Atorvastatin Calcium [Lipitor 10 mg (*)] 10 mg PO HS 03/01/17 [Last Taken Unknown] Calcium Carbonate [Tums 500MG (*)] 500 mg PO Q8H PRN 03/01/17 [Last Taken Unknown] Cholecalciferol Vit D3 [Vitamin D3 (*)] 50,000 unit PO Q14D 03/01/17 [Last Taken Unknown] DULoxetine [Cymbalta] 80 mg PO HS 03/01/17 [Last Taken Unknown] Furosemide [Lasix 40 MG (*)] 40 mg PO DAILY 03/01/17 [Last Taken Unknown] Gabapentin [Neurontin 300 MG (*)] 300 mg PO DAILY@08 03/01/17 [Last Taken Unknown] Gabapentin [Neurontin 300 MG (*)] 600 mg PO DAILY@16,22 03/01/17 [Last Taken Unknown] Polyethylene Glycol 3350 [Miralax 17 gm (*)] 17 gm PO DAILY 03/01/17 [Last Taken Unknown] amLODIPine BESYLATE [Norvasc 5 mg (*)] 5 mg PO DAILY 03/01/17 [Last Taken Unknown] oxyCODONE IR [Oxycodone Ir (*)] 5 mg PO HS 03/01/17 [Last Taken Unknown] Acetaminophen [Tylenol 325mg (*)] 650 mg PO Q4HRS PRN tab 03/05/17 [Last Taken Unknown] Discharge Medications: Refer to the Discharge Home Medication list for PRN reason. - Orders Services needed: Registered Nurse, Certified Clinical Resource Manager, Master Lineman A Class , Physical Therapy, Occupational Therapy Isolation Type: Contact Isolation, Droplet Isolation Oxygen: 4-5 lpm Diet Recommendation: no restrictions on diet Diet Texture: Regular Texture Diet - Labs/Radiology BMP Date: 03/07/17 - Follow Up Care Current Providers and Referrals: J Luis Terrell MD [Primary Care Provider] - As per Instructions
--- NOTE | 2017-03-05 12:32 | GDS ---
[f rep st] DISCHARGE SUMMARY DIAGNOSES: 1. Weakness, dehydration. 2. Norovirus. 3. Coronary artery disease. 4. Atrial fibrillation. 5. Congestive heart failure. 6. Remote history of tuberculosis. 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 8. Deafness. 9. Pacemaker. HOSPITAL COURSE: The patient is an 81-year-old with multiple medical issues and a history of signifi cant debilitation, living in assisted living, who is admitted with weakness and failure to thrive. Shayne fernandez had recently been diagnosed with norovirus and had become dehydrated. He was admitted to the [facility], placed on IV fluids and supportive care. Over the course of his hospitalization, he did well an d improved, although is not back to baseline. He is able to eat and stay hydrated. He is not on any supplemental IV fluids at this time, and his diarrhea is minimal. He does have a history of atrial fibrillation and remains on anticoagulation with rate control. He also has a history of heart diseas e, which has been stable during his admission here. CONDITION ON DISCHARGE: Good. PHYSICAL EXAMINATION: VITAL SIGNS: Stable. He is on 4 L of oxygen with 98%, respiratory rate 18, b lood pressure 152/74. He is alert. He is oriented to name. HEART: Regular. LUNGS: Clear. ABDOM EN: Benign. DISCHARGE MEDICATIONS: Please see discharge medication form. FOLLOWUP: He will be discharged to [facility] for ongoing skilled [facility] Total time spent on patient today and coordination of care is 35 minutes. /[id number]/MODL
[2017-03-05 12:41] VITALS: BP 119/57; TEMP 97.6
--- NOTE | 2017-03-06 13:36 | ASDISCHSUM ---
Discharge Information Plan Status:SNF Medically Cleared to Leave: Discharge Date:03/05/2017 02:40 PM D/C Disposition:Senior Care Facility ADT D/C Disposition:Senior Care Facility Projected Discharge Date:03/05/2017 11:00 AM Transportation at D/C:Wheelchair Van Discharge Delay Reason: Follow-Up Date:03/05/2017 11:00 AM Discharge Slot: Final Diagnosis: Placement Information Referral Type:*Home Health Care Services Ref[id number] Provider Name: Address 1: Phone Number: Address 2: Fax Number: City: Selection Factors: State: Referral Type:*Senior Living/SNF Referral ID:[id number] Provider Name:[facility] Address 1:[address] [place] Address 2: City:[place] Selection Factors: State:[place] Patient Contact Information Contact Name:ISA Relationship:Son Address:[address] City:[place] Alternate Phone: State/Zip Code:[place] [address] Email: Financial Information Financial Class: Primary Plan Desc:MEDICARE INPATIENT Primary Plan Number:[id number] Secondary Plan Desc: OUT OF [facility] Secondary Plan Number:[id number] Assessment Information [facility] CM Progress Note CM Note CM Note Notes: Patient admitted for weakness d/t Norovirus. He is being treated supportively. Patient normally resides at [facility]. He was at [facility] in October and then went back to [facility] with home care. He also has a personal companion 3x week hired by his family. I spoke with his daughter in law Marylou who could not remember the name of the home care agency but said that [facility] would know. Contacts at [facility] are Marisol (head of fpc), and his RNs Nina and Viry. Patient's DIL said that if [facility] requires patient to increase level of assistance there, family is ok with it. They are also ok with him going to [facility], although patient does not like the food there. Marylou says that patient will defer to [facility] and his son Nadir's recommendations. Today's PT eval recommends home with home care. No OT eval today. Case Managment will continue to work with patient, family, and therapists to formulate a safe discharge plan. Date Signed: 03/02/2017 04:14 PM Electronically Signed By:Bella John RN [facility] CM Progress Note CM Note CM Note Notes: Spoke with Nina at [facility] ([phone]) about pt's HC. [facility]. Faxed them clinicals. PT/OT rec back to [facility] with increased care rather than SNF. CM will continue to follow for DC needs. Date Signed: 03/03/2017 12:45 PM Electronically Signed By:Alanna Peoples LCSW [facility] CM Progress Note CM Note CM Note Notes: Spoke with pt's dtr-in-law Enrrique today ([phone]). Family would now like pt to go to [facility] where he has been in the past for a short stay. Alerted . Faxed referral with [facility]. Pt may DC this weekend. If so, contact enrrique. Family in [facility] for the weekend. Date Signed: 03/04/2017 11:05 AM Electronically Signed By:Alanna Peoples [employer]PERIMENT[employer] Intervention Information
== END 2017-03-05 14:40 | DRG 392 ==
LOC: EDUNIT# → F1N 23:37
PROVIDERS: ADMIT Internal Medicine; ATTEND Internal Medicine
DX: A08.11 Acute gastroenteropathy due to Norwalk agent (principal); E86.0 Dehydration; R53.1 Weakness; R09.02 Hypoxemia; I25.10 Atherosclerotic heart disease of native coronary artery without angina pectoris; I48.91 Unspecified atrial fibrillation; Z79.01 Long term (current) use of anticoagulants; I50.9 Heart failure, unspecified; Z95.0 Presence of cardiac pacemaker; H91.93 Unspecified hearing loss, bilateral; F03.90 Unspecified dementia, unspecified severity, without behavioral disturbance, psychotic disturbance, mood disturbance, and anxiety; G20 Parkinson's disease; I11.0 Hypertensive heart disease with heart failure; E78.5 Hyperlipidemia, unspecified; F32.9 Major depressive disorder, single episode, unspecified; Z85.828 Personal history of other malignant neoplasm of skin; Z86.11 Personal history of tuberculosis
CPT/HCPCS: 97110-GP; 97162-GP; 97166-GO; 97530-GP; 97535-GO; G8978-GP-CL; G8979-GP-CJ; G8980-GP-CL; G8987-GO-CK; G8988-GO-CI

== ENCOUNTER 2017-04-05 06:57 | Inpatient (IN) | payer OTHER, BC ==
--- NOTE | 2017-04-05 07:10 | EDPHY ---
H & P Time Seen by Provider: 04/05/17 07:04 HPI/ROS: CHIEF COMPLAINT: "Dry throat, shortness of breath" HISTORY OF PRESENT ILLNESS: The patient has a history of multiple medical problems and presents to the emergency department from his shelter facility with complaints of dry throat and shortness of breath. The patient reportedly developed the symptoms earlier today. Staff felt he may have been experiencing a panic attack. He reportedly was given Percocet without improvement of his symptoms. The patient is a difficult historian and hard of hearing. He reports only complaints of dry throat and mild dyspnea. He denies any chest pain, fever, abdominal pain or dysuria. The patient does have a history of atrial fibrillation and is anticoagulated. The patient had been hospitalized within the past month for dehydration from norovirus. REVIEW OF SYSTEMS: A comprehensive 10 point review of systems is otherwise negative aside from elements mentioned in the history of present illness. Source: Patient Exam Limitations: No limitations - Medical/Surgical History Hx Asthma: No Hx Chronic Respiratory Disease: No Hx Diabetes: No Hx Cardiac Disease: Yes Hx Renal Disease: No Hx Cirrhosis: No Hx Alcoholism: No Hx HIV/AIDS: No Hx Splenectomy or Spleen Trauma: No Other PMH: INGUINAL HERNIA SURG/TB LOBECTOMY/PACEMAKER, afib /cardiac STENTS, SHINGLES, ORIF RIGHT HIP.skin cancer l inner ear - Social History Smoking Status: Never smoked - Physical Exam Exam: General Appearance: Elderly male, no acute distress Eyes: Pupils equal and round no pallor or injection ENT, Mouth: Dry mucous membranes, patient is quite hard of hearing Respiratory: Rales bilateral lower lobes Cardiovascular: Irregular rhythm Gastrointestinal: Abdomen is soft and nontender, no masses, bowel sounds normal Neurological: 5/5 strength all 4 extremities, no obvious focal deficit Skin: Warm and dry, no rashes Musculoskeletal: Neck is supple nontender Extremities: symmetrical, full range of motion Constitutional: Initial Vital Signs Temperature (C) 36.6 C 04/05/17 07:18 Heart Rate 72 04/05/17 07:18 Respiratory Rate 22 H 04/05/17 07:18 Blood Pressure 143/85 H 04/05/17 07:18 O2 Sat (%) 92 04/05/17 07:18 O2 Delivery Mode Nasal Cannula O2 (L/minute) 5 Allergies/Adverse Reactions: clopidogrel bisulfate [From Plavix] Allergy (Verified 03/03/17 08:20) Unknown Corticosteroids (Glucocorticoids) Allergy (Verified 03/03/17 08:20) Unknown meperidine Allergy (Verified 03/03/17 08:20) Unknown meperidine HCl [From Demerol] Allergy (Verified 03/03/17 08:20) Unknown prednisone Allergy (Verified 03/03/17 08:20) Unknown Sulfa (Sulfonamide Antibiotics) Allergy (Verified 03/03/17 08:20) Unknown thiethylperazine Allergy (Verified 03/03/17 08:20) ticlopidine HCl [From Ticlid] Allergy (Verified 03/03/17 08:20) Home Medications: Medication Instructions Recorded Metoprolol Tartrate [Lopressor 25 25 mg PO BID 11/04/16 mg (*)] Omeprazole [Prilosec 20 mg] 20 mg PO HS 11/04/16 Triamcinolone 0.1% [Triamcinolone 1 emily LEFTEAR BID 11/04/16 0.1% Cream (*)] guaiFENesin [Mucinex 600 MG (*)] 1,200 mg PO BID 11/04/16 oxyCODONE IR [Oxycodone Ir (*)] 5 mg PO Q3 PRN 11/04/16 Apixaban [Eliquis] 5 mg PO BID 03/01/17 Atorvastatin Calcium [Lipitor 10 10 mg PO HS 03/01/17 mg (*)] Calcium Carbonate [Tums 500MG (*)] 500 mg PO Q8H PRN 03/01/17 Cholecalciferol Vit D3 [Vitamin D3 50,000 unit PO Q14D 03/01/17 (*)] DULoxetine [Cymbalta] 80 mg PO HS 03/01/17 Furosemide [Lasix 40 MG (*)] 40 mg PO DAILY 03/01/17 Gabapentin [Neurontin 300 MG (*)] 300 mg PO DAILY@08 03/01/17 Gabapentin [Neurontin 300 MG (*)] 600 mg PO DAILY@16,03/01/17 Polyethylene Glycol 3350 [Miralax 17 gm PO DAILY 03/01/17 17 gm (*)] amLODIPine BESYLATE [Norvasc 5 mg 5 mg PO DAILY 03/01/17 (*)] oxyCODONE IR [Oxycodone Ir (*)] 5 mg PO HS 03/01/17 Acetaminophen [Tylenol 325mg (*)] 650 mg PO Q4HRS PRN tab 03/05/17 Medical Decision Making - Diagnostics EKG Interpretation: EKG: Complete interpretation has been separately recorded in the [facility] archive. Summary impression: Atrial fibrillation, rate 61 Imaging Results: Imaging Impressions Chest X-Ray 04/05/17 07:22 Impression: Cardiomegaly with pulmonary vascular congestion and bilateral pleural effusions suggest CHF, with an interval increase in the left posterior pleural component since 03/01/2017. Superimposed airspace disease at the lung bases is not excluded. ED Course/Re-evaluation: The patient presents to the ED with complaints of acute dyspnea. The patient was noted to have rales on exam. The patient's chest x-ray does confirm congestive heart failure. The patient's son reports that his photolettering machine operator has been manipulating his diuretic dosage. Patient is mildly tachypneic. I do feel he should be admitted to the hospital for further treatment of his CHF. His EKG demonstrates rate controlled atrial fibrillation. The patient did received 20 mg of IV Lasix. The patient was monitored in the emergency department without evidence of arrhythmia. Consultation was made with the hospitalist service at 9:20 a.m.. He will be admitted for further care and stabilization. Differential Diagnosis: Differential diagnosis considered includes pneumonia, just of heart failure, atrial fibrillation with rapid ventricular response, anemia, metabolic abnormality - Data Points Laboratory Results: Laboratory Results 04/05/17 07:00 04/05/17 07:00 04/05/17 04/05/17 07:00 07:00 WBC 15.34 10^3/uL H 10^3/uL (3.80-9.50) RBC 4.49 10^6/uL 10^6/uL (4.40-6.38) Hgb 13.5 g/dL L g/dL (13.7-17.5) Hct 43.8 % % (40.0-51.0) MCV 97.6 fL fL (81.5-99.8) MCH 30.1 pg pg (27.9-34.1) MCHC 30.8 g/dL L g/dL (32.4-36.7) RDW 16.0 % H % (11.5-15.2) Plt Count 281 10^3/uL 10^3/uL (150-400) MPV 9.6 fL fL (8.7-11.7) Neut % (Auto) 84.7 % H % (39.3-74.2) Lymph % (Auto) 5.1 % L % (15.0-45.0) Swisher % (Auto) 6.0 % % (4.5-13.0) Eos % (Auto) 2.2 % % (0.6-7.6) Baso % (Auto) 1.2 % % (0.3-1.7) Nucleat RBC Rel Count 0.0 % % (0.0-0.2) Absolute Neuts (auto) 12.99 10^3/uL H 10^3/uL (1.70-6.50) Absolute Lymphs (auto) 0.78 10^3/uL L 10^3/uL (1.00-3.00) Absolute Monos (auto) 0.92 10^3/uL H 10^3/uL (0.30-0.80) Absolute Eos (auto) 0.34 10^3/uL 10^3/uL (0.03-0.40) Absolute Basos (auto) 0.19 10^3/uL H 10^3/uL (0.02-0.10) Absolute Nucleated RBC 0.00 10^3/uL 10^3/uL (0-0.01) Immature Gran % 0.8 % % (0.0-1.1) Immature Gran # 0.12 10^3/uL H 10^3/uL (0.00-0.10) Sodium 141 mEq/L mEq/L (135-145) Potassium 4.6 mEq/L mEq/L (3.5-5.2) Chloride 99 mEq/L mEq/L (97-110) Carbon Dioxide 29 mEq/l mEq/l (22-31) Anion Gap 13 mEq/L mEq/L (8-16) BUN 25 mg/dL H mg/dL (7-23) Creatinine 0.7 mg/dL mg/dL (0.7-1.3) Estimated GFR > 60 Glucose 191 mg/dL H mg/dL (70-100) Calcium 9.2 mg/dL mg/dL (8.5-10.4) Troponin I 0.018 ng/mL ng/mL (0.000-0.034) NT-Pro-B Natriuret Pep 2300 pg/mL H pg/mL (0-450) Medications Given: Discontinued Medications Furosemide (Lasix Injection) 20 mg IVP EDNOW ONE Stop: 04/05/17 08:52 Last Admin: 04/05/17 08:58 Dose: 20 mg Departure - Departure Disposition: [facility] Inpatient Acute Clinical Impression: CHF (congestive heart failure) Condition: Fair Referrals: Patient,NotPresent [Unknown] - As per Instructions
[2017-04-05 07:28] LABS: PLATELET COUNT 281 10^3/uL (150-400)
--- NOTE | 2017-04-05 07:34 | CPEKG ---
Heart Rate: 61 RR Interval: 984 QRSD Interval: 118 QT Interval: 436 QTC Interval: 440 QRS [place]: -43 T Wave [place]: 118 EKG Severity - ABNORMAL ECG - EKG Impression: AFIB/FLUT AND V-PACED COMPLEXES EKG Impression: INCOMPLETE LEFT BUNDLE BRANCH BLOCK Electronically Signed By: Gorge Artis 05-Apr-2017 11:51:15
[2017-04-05] MEDS ORDERED: FUROSEMIDE 20 MG/2 ML VIAL IVP ONE (08:51)
[2017-04-05] MEDS ORDERED: TRIAMCINOLONE 0.1% 15 GM CRTUBE TP PRN (14:47)
[2017-04-05] MEDS ORDERED: FUROSEMIDE 40 MG/4 ML VIAL IVP ONE (14:49)
[2017-04-05] MEDS ORDERED: ACETAMINOPHEN 325 MG TAB PO PRN (15:01)
[2017-04-05] MEDS ORDERED: IPRATROPIUM/ALBUTEROL 3 ML DEYVIAL IH PRN (15:01)
[2017-04-05] MEDS ORDERED: ONDANSETRON 4 MG/2 ML VIAL IVP PRN (15:01)
[2017-04-05] MEDS ORDERED: IOPAMIDOL (ISOVUE-300) 100 ML BTL ONE (15:32)
--- NOTE | 2017-04-05 15:34 | GHP ---
[f rep st] HISTORY AND PHYSICAL DATE OF ADMISSION: 04/05/2017 CHIEF COMPLAINT: Shortness of breath. HISTORY: The patient is an 82-year-old male, who comes in complaining of shortness of breath. He sa ys this shortness of breath just started this morning. He denies any chest pain. The patient is an extraordinarily poor historian partially due to his hard of hearing, but even when we slow down and r pawellly make sure he understands the question he stares into space, and only answers about 25% of all q uestions. He denies any other complaints that I can ascertain. He is unable to tell me if he had an y shortness of breath prior to this morning. There has been no reported fever or cough. He was able to tell me it was 2017 and he lives at [facility], but both of these were slow drawn ou t questioning prior to getting these answers. PAST MEDICAL HISTORY: 1. Orthostatic hypotension secondary to autonomic insufficiency. 2. Atrial fibrillation, status post pacemaker. 3. Hypertension. 4. Congestive heart failure secondary to diastolic dysfunction. 5. BPH. 6. Coronary artery disease, status post stent. 7. Remote tuberculosis status post lobectomy. 8. Squamous cell carcinoma of the ear. 9. Deafness. MEDICATIONS: Please see computer record for full detailed list. ALLERGIES: To Plavix, steroids and sulfa. SOCIAL HISTORY: No smoking. No alcohol. He lives alone at [facility]. REVIEW OF SYSTEMS: Complete review of systems obtained as best as can be obtained due to limitations discussed above. Review of systems negative regarding constitutional, HEENT, GI, pulmonary, cardiov ascular, , hematology, skin, musculoskeletal, endocrine and psych except for positives and negative s as in HPI. FAMILY HISTORY: Reviewed, noncontributory to presenting complaint. PHYSICAL EXAMINATION: GENERAL: Well-developed, well-nourished male, in no distress. VITAL SIGNS: Temperature is 36.5, pulse 81, blood pressure 140/80, saturating 93% on 5 L. EYES: Normal conjuncti vae. Pupils equal and reactive to light. ENT: Normal ears, nose. Hearing intact. Normal teeth. O ropharynx moist. NECK: Trachea midline. No thyromegaly. CHEST: Normal effort. LUNGS: Bibasilar rales. Occasional wheeze. CARDIOVASCULAR: Regular rhythm. No murmur. No lower extremity edema. ABDOMEN: Soft, nontender. No hepatosplenomegaly. SKIN: Warm, dry, intact. No rash. MUSCULOSKEL ETAL: No cyanosis or clubbing. Strength 5/5 upper and lower extremities. NEUROLOGIC: Cranial nerv es intact. Normal sensation to light touch. PSYCHIATRIC: Alert and oriented x3. Normal affect. N ormal judgment and insight. Normal memory. LABORATORY DATA: White count 15.34, hematocrit 43.8, platelets 281. Sodium 141, potassium 4.6, chlo ride 99, bicarb 29, BUN 25, creatinine 0.7, glucose 191. Troponins negative. BNP is 2300. EKG view ed by me. My personal interpretation is paced rhythm. Chest x-ray shows a left posterior pleural ef fusion. Positive spine sign. Medical records are extensive. I reviewed them including reviewing al l previous chest x-rays for comparison to the current. Definitely more opacification in the posterio r than previously. ASSESSMENT/PLAN: 1. Shortness of breath. Differential diagnosis is congestive heart failure versus worsening loculat ed pleural effusions. Review of his old chart does report a known history of loculated pleural effus ions in the past and I am concerned that there is increased opacification on his chest x-ray. We joselin l check a CT scan of the chest. Will continue IV Lasix. He recently had an echo and I do not think it needs to be repeated at this time. He has known diastolic dysfunction. 2. Leukocytosis. We will rule out infections and cultures. 3. Atrial fibrillation with pacemaker. Continue Eliquis and metoprolol. 4. Extreme hard of hearing. It is unclear if he also has an element of confusion and metabolic ence phalopathy. He is not 100% oriented even when we very slowly work with him through the hearing loss to get answers to questions. 5. Coronary artery disease, status post stents. Troponins are negative and I doubt acute ischemia c ontributing. CODE STATUS: Full. ADMISSION STATUS: Will admit to inpatient as he is medically complex. Anticipate greater than 2 mid nights required for stabilization. DVT PROPHYLAXIS: He is chronically anticoagulated on Eliquis, which makes him low risk. /[id number]/MODL
[2017-04-05] MEDS: GABAPENTIN 300 MG CAP PO SCH ×2 (15:57→21:08)
--- NOTE | 2017-04-05 16:56 | PDMN ---
Medical Necessity Medical necessity: est los>2mn for SOB, r/t CHF vs worsening loculated pleural effusions, and leukocytosis; admit for IV Lasix, imaging, r/o infection w/cx's; comorbid afib w/PPM, CAD, possible confusion and metabolic encephalopathy; difficult communication r/t extremely [place]; per order and H&P
[2017-04-05] MEDS: oxyCODONE IR 5 MG TAB PO PRN (18:35)
[2017-04-05] MEDS ORDERED: NON-FORMULARY NEW DRUG (Omeprazole [Prilosec 20 Mg] 20 MG) PO SCH (21:00)
[2017-04-05] MEDS: DULoxetine 20 MG CAP PO SCH (21:08)
[2017-04-05] MEDS: METOPROLOL TARTRATE 25 MG TAB PO SCH (21:09)
[2017-04-05] MEDS: guaiFENesin 600 MG TAB.ER PO SCH (21:09)
[2017-04-05] MEDS: PANTOPRAZOLE SODIUM 40 MG TAB PO SCH (21:09)
[2017-04-05] MEDS: ATORVASTATIN CALCIUM 10 MG TAB PO SCH (21:09)
[2017-04-06 04:46] LABS: PLATELET COUNT 206 10^3/uL (150-400)
[2017-04-06] MEDS: POLYETHYLENE GLYCOL 3350 17 GM PKT PO SCH (09:28)
[2017-04-06] MEDS: guaiFENesin 600 MG TAB.ER PO SCH ×2 (09:28→20:20)
[2017-04-06] MEDS: GABAPENTIN 300 MG CAP PO SCH ×3 (09:28→20:18)
[2017-04-06] MEDS: METOPROLOL TARTRATE 25 MG TAB PO SCH ×2 (09:29→20:19)
[2017-04-06] MEDS: amLODIPine BESYLATE 5 MG TAB PO SCH (09:29)
[2017-04-06 09:52] LABS: INR 1.39 (0.83-1.16); PROTIME(PATIENT) 17.2 SEC (12.0-15.0)
[2017-04-06] MEDS ORDERED: LIDOCAINE 1% 300 MG/30 ML SDV ONE (10:18)
--- NOTE | 2017-04-06 16:14 | ASMTCMCOM ---
CM Note CM Note Notes: 04/06/2017 Case Management Note Discussed Case with Malachi from Palliative Care. Please see his note. Called [facility]. They are willing to take pt back. If pt comes to [place] under Palliative Care, pt will be sent back to the hospital for any changes in vital signs. If pt comes to [place] under Hospice he will not be sent to the hospital any more. Called Tremayne at [facility]. Faxed referral. Marylou stated a possible scenario family was contemplating was for pt to enter rehab bed with eventual transition to local intermodal truck driver care at [facility]. Tremayne was unaware of this. [facility] has not accepted pt yet. Tremayne to call both [facility] and Marylou with rehab bed availability tomorrow. Received phone call from [facility] stating Marylou had called requesting a referral. [facility] does not have Palliative services. Called Marylou (pt DIL) at [phone]. She was not aware of [facility] only status. Marylou refused [facility] referral. Instead Marylou requested referral sent to [facility] for consult. Per Marylou, the decision for palliative vs hospice will be decided based on MD recommendations about why the fluid continues to reaccumulate. Marylou states if it is felt the fluid is an infection and will be fixed with antibiotics then the family will want the patient to go to rehab, preferably [facility]. If the MD states the fluid is from heart failure the family will want hospice and likely will go back to [place]. Case Management d/c poc: to be determined pending bed availablity at [facility] and family decision of palliative vs hospice. Case Management to follow. Date Signed: 04/06/2017 04:14 PM Electronically Signed By:Aurea Johnson RN
--- NOTE | 2017-04-06 19:05 | HOSPPROG ---
Hospitalist Progress Note Assessment/Plan: * Bilateral loculated effusions -left effusion enlarging - thoracentesis today - studies sent * Acute on chronic diastolic CHF -IV lasix * Afib/PCM -metoprolol, eliquis * CAD/stents * Extreme [place] Subjective: no new complaints. Objective: Vital Signs Temp Pulse Resp BP Pulse Ox 36.4 C 60 18 103/61 100 04/06/17 15:00 04/06/17 15:00 04/06/17 15:00 04/06/17 15:00 04/06/17 15:00 Microbiology 04/06/17 11:15 Gram Stain - Final Thoracic Fluid - Aspirate Laboratory Results 04/06/17 04:26 04/06/17 04:26 04/05/17 04/06/17 04/07/17 05:59 05:59 05:59 Intake Total 390 700 Output Total 1325 1950 Balance -935 -1250 PT 17.2 SEC (12.0-15.0) H 04/06/17 09:25 INR 1.39 (0.83-1.16) H 04/06/17 09:25 CXR viewed, my personal interpretation is - improved tele reviewed - paced rhythm - Physical Exam Constitutional: no apparent distress, appears nourished, not in pain Ears, Nose, Mouth, Throat: No hearing normal Cardiovascular: regular rate and rhythym, no murmur, rub, or gallop Respiratory: no respiratory distress, no rales or rhonchi, clear to auscultation Gastrointestinal: normoactive bowel sounds, soft, non-tender abdomen, no palpable masses Skin: no rashes or abrasions, no fluctuance, no induration Neurologic: AAOx3, sensation intact bilaterally Psychiatric: interacting appropriately, not anxious, not encephalopathic, thought process linear ICD10 Worksheet Patient Problems: Problems Problem Status Onset CHF (congestive heart failure) Acute Bilateral pleural effusion Acute Chest pain Acute Hernia Acute Nausea Acute Pneumonia Acute Syncope Acute Weakness Acute chronic disease mgmt/transitional care Acute
[2017-04-06] MEDS: DULoxetine 20 MG CAP PO SCH (20:16)
[2017-04-06] MEDS: PANTOPRAZOLE SODIUM 40 MG TAB PO SCH (20:19)
[2017-04-06] MEDS: ATORVASTATIN CALCIUM 10 MG TAB PO SCH (20:20)
[2017-04-07] MEDS: oxyCODONE IR 5 MG TAB PO PRN (03:25)
[2017-04-07 04:42] LABS: PLATELET COUNT 199 10^3/uL (150-400)
[2017-04-07] MEDS: GABAPENTIN 300 MG CAP PO SCH ×3 (08:14→21:59)
[2017-04-07] MEDS: FUROSEMIDE 40 MG/4 ML VIAL IVP SCH (08:14)
[2017-04-07] MEDS: guaiFENesin 600 MG TAB.ER PO SCH ×2 (08:18→19:48)
[2017-04-07] MEDS: METOPROLOL TARTRATE 25 MG TAB PO SCH ×2 (08:18→19:48)
[2017-04-07] MEDS: APIXABAN 5 MG TAB PO SCH ×2 (08:19→19:49)
[2017-04-07] MEDS: POLYETHYLENE GLYCOL 3350 17 GM PKT PO SCH (08:19)
[2017-04-07] MEDS: amLODIPine BESYLATE 5 MG TAB PO SCH ×2 (08:20→14:46)
--- NOTE | 2017-04-07 16:29 | HOSPPROG ---
Hospitalist Progress Note Assessment/Plan: 82-year-old male admitted with acute shortness of breath and noted to have decompensated diastolic congestive heart failure. Patient is new to me today -Bilateral loculated effusions -left effusion enlarging - thoracentesis showed a transudative effusion with cultures pending. 800 cc was removed - Acute on chronic diastolic CHF -IV lasix * Afib/PCM -metoprolol, eliquis * CAD/stents * Extreme [place] Plan: 1 or 2 more days of further diuresis will be necessary. The disposition will likely be to [facility] or to [facility]. Subjective: No complaints other than he is extremely hard of hearing. Denies having chest pain or shortness of breath he does report that he feels improved Objective: Vital Signs Temp Pulse Resp BP Pulse Ox 36.8 C 60 18 106/56 L 94 04/07/17 12:00 04/07/17 12:00 04/07/17 12:00 04/07/17 12:00 04/07/17 12:00 Microbiology 04/06/17 11:15 Mycobacterial Smear (CONCEPCION) - Final Thoracic Fluid - Aspirate 04/06/17 11:15 Gram Stain - Final Thoracic Fluid - Aspirate Laboratory Results 04/07/17 04:12 04/07/17 04:12 04/06/17 04/07/17 04/08/17 05:59 05:59 05:59 Intake Total 390 950 Output Total 1325 2175 Balance -935 -1225 PT 17.2 SEC (12.0-15.0) H 04/06/17 09:25 INR 1.39 (0.83-1.16) H 04/06/17 09:25 - Time Spent With Patient Time Spent with Patient: greater than 35 minutes Time Spent with Patient: Greater than 35 minutes spent on this patients care, greater than 50% of time spent counseling, educating, and coordinating care regarding the above mentioned plan. - Pending Discharge Pending Discharge Within 24 Hours: No Pending Discharge Within 48 Hours: Yes Pending Discharge Date: 04/09/17 Pending Discharge Time: 11:00 - Physical Exam Constitutional: no apparent distress, chronically ill appearing Eyes: PERRL Ears, Nose, Mouth, Throat: moist mucous membranes, hard of hearing, other ( Deformity of the left ear is noted secondary to surgery.) Cardiovascular: regular rate and rhythym Respiratory: no respiratory distress, reduced air movement, inspiratory crackles Gastrointestinal: normoactive bowel sounds, soft, non-tender abdomen Genitourinary: no bladder fullness Skin: warm Musculoskeletal: full muscle strength Neurologic: AAOx3, CN II-XII Intact, other (Extremely hard of hearing.) Psychiatric: interacting appropriately ICD10 Worksheet Patient Problems: Problems Problem Status Onset Syncope Acute Nausea Acute Weakness Acute chronic disease mgmt/transitional care Acute Hernia Acute Bilateral pleural effusion Acute Chest pain Acute Pneumonia Acute CHF (congestive heart failure) Acute
[2017-04-07] MEDS: DULoxetine 20 MG CAP PO SCH (19:47)
[2017-04-07] MEDS: ATORVASTATIN CALCIUM 10 MG TAB PO SCH (19:48)
[2017-04-07] MEDS: PANTOPRAZOLE SODIUM 40 MG TAB PO SCH (19:48)
[2017-04-08] MEDS: POLYETHYLENE GLYCOL 3350 17 GM PKT PO SCH (07:52)
[2017-04-08] MEDS: amLODIPine BESYLATE 5 MG TAB PO SCH (07:53)
[2017-04-08] MEDS: GABAPENTIN 300 MG CAP PO SCH ×3 (07:53→20:17)
[2017-04-08] MEDS: APIXABAN 5 MG TAB PO SCH ×2 (07:53→20:17)
[2017-04-08] MEDS: METOPROLOL TARTRATE 25 MG TAB PO SCH ×2 (07:55→20:17)
[2017-04-08] MEDS: guaiFENesin 600 MG TAB.ER PO SCH ×2 (07:56→20:17)
[2017-04-08] MEDS: FUROSEMIDE 40 MG/4 ML VIAL IVP SCH (09:54)
--- NOTE | 2017-04-08 14:38 | ASMTCMCOM ---
CM Note CM Note Notes: I spoke with patient's daughter in law Florence ([phone]) about discharge planning. She agrees with discharge back to [facility] with home care and palliative care. She had been considering SNF, but patient does not want [facility], and [facility] not [facility] beds. There is also some question as to whether patient is really benefiting from SNF rehab, since he's been to [facility] twice in the last few months. He was last discharged from there 2 weeks ago. At [facility], patient has PT/OT with [facility]. We will have that reinstated and add a TRIBAL JUDGE. 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 I spoke with [facility], and they will contact Florence to coordinate a meeting/assessment with patient and family once he is settled back in at [facility]. We will send them discharge paperwork for their reference. [facility] is in agreement with this plan and can accept patient tomorrow. We will have [facility] transport him; Florence said that they may call her for payment. Current CM Discharge plan: [facility] with [facility] and [facility] Date Signed: 04/08/2017 02:37 PM Electronically Signed By:Bella John RN
--- NOTE | 2017-04-08 16:26 | HOSPPROG ---
Hospitalist Progress Note Assessment/Plan: 82-year-old male admitted with acute shortness of breath and noted to have decompensated diastolic congestive heart failure. -Bilateral loculated effusions -left effusion enlarging - thoracentesis showed a transudative effusion with cultures pending. 800 cc was removed.. The underlying question here is the etiology of the gentleman's of pulmonary disease. - Acute on chronic diastolic CHF -IV lasix -Afib/PCM -metoprolol, eliquis -CAD/stents -Extreme [place] Plan: 1 or 2 more days of further diuresis will be necessary. The disposition will likely be to [facility] or to [facility]. He is currently gaining more strength and may be able to function in the assisted living situation. The question has a Adame as to hospice care versus palliative care. This needs to be discussed further with the family whom I will contact. Subjective: No complaints and no complaints of chest pain or shortness of breath cough or fever. Objective: Vital Signs Temp Pulse Resp BP Pulse Ox 36.6 C 66 18 131/69 H 92 04/08/17 16:00 04/08/17 16:00 04/08/17 16:00 04/08/17 16:00 04/08/17 16:00 Microbiology 04/06/17 11:15 Gram Stain - Final Thoracic Fluid - Aspirate 04/06/17 11:15 Mycobacterial Smear (CONCEPCION) - Final Thoracic Fluid - Aspirate Laboratory Results 04/07/17 04:12 04/08/17 04:17 04/07/17 04/08/17 04/09/17 05:59 05:59 05:59 Intake Total 950 1300 Output Total 2175 1175 Balance -1225 125 PT 17.2 SEC (12.0-15.0) H 04/06/17 09:25 INR 1.39 (0.83-1.16) H 04/06/17 09:25 - Time Spent With Patient Time Spent with Patient: greater than 35 minutes Time Spent with Patient: Greater than 35 minutes spent on this patients care, greater than 50% of time spent counseling, educating, and coordinating care regarding the above mentioned plan. - Pending Discharge Pending Discharge Within 24 Hours: Yes Pending Discharge Date: 04/09/17 Pending Discharge Time: 11:00 - Physical Exam Constitutional: chronically ill appearing Eyes: PERRL Ears, Nose, Mouth, Throat: moist mucous membranes, hard of hearing Cardiovascular: regular rate and rhythym Respiratory: no respiratory distress, no rales or rhonchi Gastrointestinal: normoactive bowel sounds, soft, non-tender abdomen Musculoskeletal: generalized weakness Neurologic: AAOx3, CN II-XII Intact ICD10 Worksheet Patient Problems: Problems Problem Status Onset Syncope Acute Nausea Acute Weakness Acute chronic disease mgmt/transitional care Acute Hernia Acute Bilateral pleural effusion Acute Chest pain Acute Pneumonia Acute CHF (congestive heart failure) Acute
[2017-04-08 19:53] VITALS: PULSE 60
[2017-04-08] MEDS: PANTOPRAZOLE SODIUM 40 MG TAB PO SCH (20:17)
[2017-04-08] MEDS: DULoxetine 20 MG CAP PO SCH (20:17)
[2017-04-08] MEDS: ATORVASTATIN CALCIUM 10 MG TAB PO SCH (20:17)
[2017-04-09] MEDS: APIXABAN 5 MG TAB PO SCH (09:53)
[2017-04-09] MEDS: guaiFENesin 600 MG TAB.ER PO SCH (09:53)
[2017-04-09] MEDS: GABAPENTIN 300 MG CAP PO SCH ×2 (09:54→15:46)
[2017-04-09] MEDS: POLYETHYLENE GLYCOL 3350 17 GM PKT PO SCH (09:54)
[2017-04-09] MEDS: METOPROLOL TARTRATE 25 MG TAB PO SCH (10:02)
[2017-04-09] MEDS: amLODIPine BESYLATE 5 MG TAB PO SCH (10:02)
[2017-04-09] MEDS: FUROSEMIDE 40 MG/4 ML VIAL IVP SCH (10:02)
[2017-04-09 11:07] VITALS: RESP 16; O2SAT 92
[2017-04-09 15:53] VITALS: BP 101/55; TEMP 98.1
--- NOTE | 2017-04-09 16:01 | PDIAF ---
- Diagnosis Code Status: Limited Resuscitation - Medication Management Discharge Medications: Medications to Continue on Transfer Metoprolol Tartrate [Lopressor 25 mg (*)] 25 mg PO BID 11/04/16 [Last Taken 02/07 21:00] Omeprazole [Prilosec 20 mg] 20 mg PO HS 11/04/16 [Last Taken 04/04/17] Triamcinolone 0.1% [Triamcinolone 0.1% Cream (*)] 1 emily LEFTEAR BID PRN [Last Taken Unknown] guaiFENesin [Mucinex 600 MG (*)] 1,200 mg PO BID 11/04/16 [Last Taken 04/04/17 21:00] oxyCODONE IR [Oxycodone Ir (*)] 5 mg PO Q3 PRN 11/04/16 [Last Taken 04/04/17 05: 20] Apixaban [Eliquis] 5 mg PO BID 03/01/17 [Last Taken 04/04/17 21:00] Atorvastatin Calcium [Lipitor 10 mg (*)] 10 mg PO HS 03/01/17 [Last Taken ] Cholecalciferol Vit D3 [Vitamin D3 (*)] 50,000 unit PO Q14D 03/01/17 [Last Taken 03/29/17] DULoxetine [Cymbalta] 80 mg PO HS 03/01/17 [Last Taken 04/04/17] Furosemide [Lasix 40 MG (*)] 40 mg PO DAILY 03/01/17 [Last Taken 04/01/16] Gabapentin [Neurontin 300 MG (*)] 600 mg PO TID 03/01/17 [Last Taken 04/04/17 21 :00] Polyethylene Glycol 3350 [Miralax 17 gm (*)] 17 gm PO DAILY 03/01/17 [Last Taken 04/04/17] amLODIPine BESYLATE [Norvasc 5 mg (*)] 5 mg PO DAILY 03/01/17 [Last Taken ] Acetaminophen [Tylenol 325mg (*)] 650 mg PO Q6HRS PRN 04/05/17 [Last Taken Unknown] Nystatin Powder [Mycostatin Powder] 1 emily TP DAILY PRN 04/05/17 [Last Taken Unknown] oxyCODONE HCL [Oxycontin] 10 mg PO HS 04/05/17 [Last Taken 04/04/17] Discharge Medications: Refer to the Discharge Home Medication list for PRN reason. - Orders Services needed: Registered Nurse, Physical Therapy, Occupational Therapy, Speech Language Pathologist Isolation Type: None Diet Recommendation: no restrictions on diet Diet Texture: Regular Texture Diet, Thin Liquids, Meds Whole w/Liquids Weigh Patient: daily - Labs/Radiology CBC w/diff Date: 04/18/17 CMP Date: 04/18/17 Other Lab Name, Date and Time: Palliative care consultation at [facility] - Follow Up Care Current Providers and Referrals: Patient,NotPresent [Unknown] - As per Instructions
--- NOTE | 2017-04-09 16:09 | ASDISCHSUM ---
Discharge Information Plan Status:Home with Home Health Medically Cleared to Leave:04/08/2017 Discharge Date:04/08/2017 CM D/C Disposition:Assisted Living ADT D/C Disposition:Retirement Facility Projected Discharge Date:04/09/2017 11:00 AM Transportation at D/C:Wheelchair Van Discharge Delay Reason: Follow-Up Date:04/09/2017 11:00 AM Discharge Slot: Final Diagnosis: Placement Information Referral Type:*[facility]/SNF Referral ID:[id number] Provider Name: Address 1: Phone Number: Address 2: Fax Number: City: Selection Factors: State: Referral Type:Assisted Living Residence Referral ID:[id number] Provider Name:[facility] Address 1:[address] Address 2: City:[place] Selection Factors: State:[place] Referral Type:Palliative Care Referral ID:[id number] Provider Name:[facility] Address 1:[address] [place] [address] Address 2: City:[place] Selection Factors: State:[place] Referral Type:*Home Health Care Services Referral ID:[id number] Provider Name:[facility] Address 1:[address] Phone Number: Address 2: Fax Number: City:[place] Selection Factors: State:[place] Patient Contact Information Contact Name:ISA Relationship:Son Address:[address] [place] [address] City:[facility] Phone: [facility] Code:[place] [address] Email: Financial Information Financial Class:Medicare Primary Plan Desc:MEDICARE INPATIENT Primary Plan Number:[id number] Secondary Plan Desc: OUT OF [facility] Secondary Plan Number:[id number] Assessment Information BC CM Progress Note CM Note CM Note Notes: 04/06/2017 Case Management Note Discussed Case with Malachi from Palliative Care. Please see his note. Called [facility]. They are willing to take pt back. If pt comes to [facility] under Palliative Care, pt will be sent back to the hospital for any changes in vital signs. If pt comes to [facility] under Hospice he will not be sent to the hospital any more. Called Tremayne at [facility]. Faxed referral. Marylou stated a possible scenario family was contemplating was for pt to enter rehab bed with eventual transition to longterm care at [facility]. Trem[facility]ne was unaware of this. [facility] has not accepted pt yet. Tremayne to call both marco alon[facility] and Marylou with rehab bed availability tomorrow. Received phone call from [facility] stating Marylou had called requesting a referral. [facility] does not have Palliative services. Called Marylou (pt DIL) at [phone]. She was not aware of [facility] only status. Marylou refused [facility] referral. Instead Marylou requested referral sent to [facility] for consult. Per Marylou, the decision for palliative vs hospice will be decided based on MD recommendations about why the fluid continues to reaccumulate. Marylou states if it is felt the fluid is an infection and will be fixed with antibiotics then the family will want the patient to go to rehab, preferably [facility]. If the MD states the fluid is from heart failure the family will want hospice and likely will go back to [facility]. Case Management d/c poc: to be determined pending bed availablity at [facility] and family decision of palliative vs hospice. Case Management to follow. Date Signed: 04/06/2017 04:14 PM Electronically Signed By:Aurea Johnosn RN [facility] Progress Note CM Note CM Note Notes: I spoke with patient's daughter in law Marylou ([phone]) about discharge planning. She agrees with discharge back to [facility] with home care and palliative care. She had been considering SNF, but patient does not want [facility], and [facility] not have beds. There is also some question as to whether patient is really benefiting from SNF rehab, since he's been to [facility] twice in the last few months. He was last discharged from there 2 weeks ago. At [facility], patient has PT/OT with [facility]. We will have that reinstated and add a GRAIN COMBINER. Patient also has a private pay PT/riding coach 2x week. I spoke with [facility], and they will contact Marylou to coordinate a meeting/assessment with patient and family once he is settled back in at [facility]. We will send them discharge paperwork for their reference. [facility] is in agreement with this plan and can accept patient tomorrow. We will have [facility] transport him; Marylou said that they may call her for payment. Current CM Discharge plan: [facility] with [facility] and [facility] Date Signed: 04/08/2017 02:37 PM Electronically Signed By:Bella John RN Case Management Discharge Plan Note Case Management Discharge Discharge Order Complete? Answers: Yes Patient to Obtain Answers: Other Notes: Assisted Living Medications Transportation Arranged Answers: Other Notes: [facility] w/c Transport will Pick (Date 04/09/2017 04:45 PM & Time) Faxed Final Orders Answers: Yes Family Notified Answers: Yes Discharge Comments Notes: Pt is discharging back to [facility] today. Notified pt's dtr in law Briana Barth. Transport arranged through [facility] - [facility]. Faxed d/c meds and sent d/c paperwork via [employer] to [facility] and [facility]. Briana Barth informed about IM - pt unable to sign, copy in chart. Date Signed: 04/09/2017 04:19 PM Electronically Signed By:RADHA Roman Intervention Information
--- NOTE | 2017-04-09 16:32 | ASMTLACE ---
LACE Length of stay for Answers: 4-6 days current admission Acuity / Level of Answers: Yes Care: Did the patient have an inpatient admission? Comorbidities - select Answers: Congestive heart failure all that apply Other Notes: Coronary artery disease # of Emergency department Answers: 3-4 visits in the last 6 months Score: 13 Date Signed: 04/09/2017 04:32 PM Electronically Signed By:RADHA Roman
--- NOTE | 2017-04-10 13:51 | GDS ---
[f rep st] DISCHARGE SUMMARY NEW AND ACUTE DIAGNOSES: 1. Acute congestive heart failure, diastolic dysfunction, now compensated. 2. Leukocytosis of unclear etiology. 3. Atrial fibrillation, currently in good rate control. 4. Acute hypoxic respiratory failure secondary to decompensation of diastolic congestive heart failu re. 5. Extremely hard of hearing. CHRONIC DIAGNOSES: 1. Status post remote pacemaker. 2. Coronary artery disease with prior stents. 3. History of tuberculosis in the 1960s and status post lobectomy. 4. 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 CONSULTATION: None. PROCEDURES: 1. Ultrasound thoracentesis of the left chest of 800 cc. Pathology is pending. The fluid analysis indicated a transudative fluid. 2. Chest CT showed stable appearance of a loculated moderate right pleural effusion with lobulated c omponents. There was an increase in the left pleural effusion without significant loculations. Stab le cardiomegaly is noted and atherosclerotic calcifications in the proximal to mid LAD and obtuse mar ginal branch of the left circumflex are noted and similar to prior studies. HOSPITAL COURSE: This is an 82-year-old gentleman who presents with acute respiratory failure and hy poxemia. He was noted to have a reaccumulation of a left pleural effusion, which was tapped with rem oval of 800 cc of transudative effusion. Cultures are pending at this time. He had known atrial fib rillation which was in good rate control. His hypoxemia was slightly worse than baseline, and he rec eived supplemental oxygen and he returned to near baseline at the time of discharge. This gentleman has been admitted on several occasions in the past for shortness of breath and weaknes s. History would show that on 10/10/2016 he was admitted for shortness of breath and noted to have a right pleural effusion, with a thoracentesis and 450 cc were removed. In October 2016, he was adm itted for syncope and thought to have dehydration secondary to the use of diuretics which were used a t that time for his diastolic dysfunction. In June of 2015, he had a right pleural effusion and a tho racentesis of 460 cc. In February of 2017, he was admitted for norovirus with diarrhea, and now admit ji at this time for a left pleural effusion and a thoracentesis of 800 cc. Overall, it is unclear w hat the gentleman's cause of weakness and the recurrence of his pleural effusions may be. All the ef fusions have been transudative in nature. He has known congestive heart failure with diastolic dysfu nction, but an EF of approximately 65%. The recurrence of these effusions is likely secondary to a c ombination of factors, including which could be an increase in ventricular response of his atrial fib rillation, worsening hypoxemia for unclear reasons, the need of some diuretic for his diastolic CHF, although this is proven to be problematic as he easily will develop weakness if excessive diuresis oc curs. The family has engaged with the question of hospice care, although there is nothing indicative here that the gentleman is terminal in nature. I have encouraged them then to pursue palliative car e for a further and deeper understanding of how to manage this gentleman's difficult problem. He is a resident of [facility], and a palliative care consultation is being arranged in at facility. DISCHARGE MEDICATIONS: No changes have been made to his medications. In particular, his diuresis bhakta s not been increased. Medications are as follows: Triamcinolone cream to the left ear, Prilosec 20 mg HS, oxycodone IR 5 mg q.3 hours p.r.n., Lopressor 25 mg b.i.d., Mucinex 1200 mg b.i.d., MiraLAX, L asix 40 mg daily, Eliquis 5 mg b.i.d., Cymbalta 80 mg HS, Norvasc 5 mg daily, Lipitor 10 mg HS, vitam in D3, Neurontin 600 mg t.i.d., nystatin powder, oxycodone 10 mg p.o. HS, Tylenol p.r.n. Note, in review of the gentleman's medications, it is also possible his episodes of weakness and poss ible worsening hypoxemia could be related to excessive use of narcotic medication. Note that he has access to oxycodone IR on an every 3 hour basis, along with regular use of OxyContin. Thus, it is po ssible in this elderly gentleman that he could become excessively sedated and thus hypoxic. Addition ally, he has significant antihypertensive medications which may result in episodes of hypotension. I t is noted in 1 previous admission that he was orthostatic. In addition, he is taking a beta rhonda , and though he has a pacemaker his heart rates generally run in the 60s without significant elevatio n. He does have chronic hypoxemia and will be discharged on supplemental oxygen of 1 to 2 L/minute chron ically. His followup plan will be to follow up through the physician there at [facility]. I have discussed the matter with his [id number] by phone and explained details, and encouraged th em to pursue palliative care consultation. TIME: This discharge required 55 minutes, greater than 50% to guidance counselor, coordinate care, and the phon e call to his [id number]. /[id number]/MODL
== END 2017-04-09 17:04 | DRG 291 ==
LOC: EDUNIT# → F2W 14:27 → OBSVTOIN 15:10
PROVIDERS: ADMIT Internal Medicine; ATTEND Internal Medicine
PROC: 0W9B3ZX Drainage of Left Pleural Cavity, Percutaneous Approach, Diagnostic (ICD-10-PCS; principal; 2017-04-06)
DX: I50.31 Acute diastolic (congestive) heart failure (principal); J96.01 Acute respiratory failure with hypoxia; J90 Pleural effusion, not elsewhere classified; I48.91 Unspecified atrial fibrillation; N40.0 Benign prostatic hyperplasia without lower urinary tract symptoms; I25.10 Atherosclerotic heart disease of native coronary artery without angina pectoris; H91.90 Unspecified hearing loss, unspecified ear; Z95.0 Presence of cardiac pacemaker; Z95.5 Presence of coronary angioplasty implant and graft; Z85.820 Personal history of malignant melanoma of skin; Z86.11 Personal history of tuberculosis; Z90.2 Acquired absence of lung [part of]
CPT/HCPCS: 92507-GN; 92523-GN; 92526-GN; 92610-GN; 96374; 97110-GP; 97116-GP; 97162-GP; 97165-GO; 97530-GO; 97530-GP; G8978-GP-CM; G8979-GP-CJ; G8987-GO-CL; G8988-GO-CK; G8996-GN-CI; G8997-GN-CI; G8998-GN-CI; G9168-GN-CL; G9169-GN-CJ; J1940; Q9967

== ENCOUNTER 2017-04-25 19:23 | Inpatient (IN) | payer OTHER, BC ==
--- NOTE | 2017-04-25 19:36 | EDPHY ---
HPI/HX/ROS/PE/MDM Narrative: CHIEF COMPLAINT: Low oxygen HISTORY OF PRESENT ILLNESS: This patient is a pleasant 82 y/o male with history of congestive heart failure , Parkinson's dementia, CAD, and atrial fibrillation arriving via EMS from his assisted living facility complaining of chest congestion. He was admitted to this hospital for acute CHF and acute hypoxic respiratory failure. He has had several similar admissions in the past, presenting with shortness of breath and weakness. Per staff at his living facility, he has seemed more lethargic than usual and they noted low SpO2 occasionally today. He is generally on 3L home oxygen. Currently, the patient complains of chest congestion. He endorses shortness of breath. He has had a persistent cough with productive sputum, occasionally blood-tinged. No fever, chills, chest pain, palpitations, vomiting , diarrhea, urinary complaints, headache, lightheadedness. Patient is a somewhat difficult historian due to severe hearing loss. REVIEW OF SYSTEMS: Aside from elements discussed in the HPI, a comprehensive 10-point review of systems was reviewed and is negative. PAST MEDICAL HISTORY: Hearing loss. Congestive heart failure. Parkinson's dementia. Depression. CAD. Reflux. Paroxysmal atrial fibrillation s/p pacer placement. Dysphagia. Hypertension. History of pulmonary lobectomy due to TB. SCCA of ear s/p resection. SOCIAL HISTORY: Lives at [facility]. Retired. No smoking, no alcohol use. Past medical records reviewed including admission 04/05/17 for shortness of breath. VITAL SIGNS: Reviewed by me GENERAL: Elderly male, pleasant, hard of hearing. Somewhat somnolent. No obvious respiratory distress. HEENT: Atraumatic. Eyes: Mild edema of both eyelids. Bilateral conjunctival injection. No icterus. Mouth: moist mucous membranes. No erythema or lesions. Neck: supple with no adenopathy. Left ear s/p resection for SCCA. LUNGS: Clear to auscultation bilaterally, no wheezes, rhonchi or rales. CARDIAC: Regular rate and rhythm, no rubs, murmurs or gallops. ABDOMEN: Soft, nontender, nondistended, bowel sounds normal. BACK: No CVA tenderness. EXTREMITIES: No trauma. No edema. Range of motion is normal throughout. NEURO: Alert and oriented, grossly nonfocal. SKIN: Warm and dry, no rash. PSYCHIATRIC: Normal mentation, no agitation. Portions of this note were transcribed by a medical interpreter. I personally performed a history, physical exam, medical decision making, and confirmed accuracy of information the transcribed note. ED Course: 82 y/o male with history of congestive heart failure presents with chest congestion. Plan for chest x-ray, EKG, labs including CBC, chemistries, troponin , BNP. Past medical records reviewed. Patient has been admitted on several occasions in the past for shortness of breath and weakness, and has undergone multiple thoracentesis procedures for recurrent pleural effusions. 12-LEAD EKG: Please see the full report in [facility]. My interpretation: Atrial fibrillation/flutter, rate 60. Chest x-ray shows recurrent effusion. Troponin negative. BNP 1530. 20:[address] Carlson, hospitalist. He accepts admission for CHF exacerbation. 21:20 Reassessed patient. Plan to admit as above. The patient is comfortable with this plan. MDM: After the history was obtained and physical exam performed, the following differential for the patient's presenting complaint or her mental region was considered included but was not limited to electrolyte disturbances, pulmonary infectious processes, COPD exacerbation, pulmonary emboli, pulmonary edema, congestive heart failure, and cardiac causes. - Data Points Imaging Results: Imaging Impressions Chest X-Ray 04/25/17 19:48 Impression: 1. Recurrent small to moderate left pleural effusion. 2. Chronic multiloculated right pleural effusion unchanged. 3. Cardiomegaly and pulmonary venous hypertension unchanged. 4. No makenna failure. Imaging: I viewed and interpreted images myself Laboratory Results: Laboratory Results 04/25/17 19:15 04/25/17 19:15 04/25/17 04/25/17 19:15 19:15 WBC 8.96 10^3/uL 10^3/uL (3.80-9.50) RBC 4.71 10^6/uL 10^6/uL (4.40-6.38) Hgb 14.1 g/dL g/dL (13.7-17.5) Hct 43.9 % % (40.0-51.0) MCV 93.2 fL fL (81.5-99.8) MCH 29.9 pg pg (27.9-34.1) MCHC 32.1 g/dL L g/dL (32.4-36.7) RDW 15.5 % H % (11.5-15.2) Plt Count 243 10^3/uL 10^3/uL (150-400) MPV 9.7 fL fL (8.7-11.7) Neut % (Auto) 80.9 % H % (39.3-74.2) Lymph % (Auto) 5.6 % L % (15.0-45.0) [place] % (Auto) 8.6 % % (4.5-13.0) Eos % (Auto) 3.0 % % (0.6-7.6) Baso % (Auto) 1.3 % % (0.3-1.7) Nucleat RBC Rel Count 0.0 % % (0.0-0.2) Absolute Neuts (auto) 7.25 10^3/uL H 10^3/uL (1.70-6.50) Absolute Lymphs (auto) 0.50 10^3/uL L 10^3/uL (1.00-3.00) Absolute Monos (auto) 0.77 10^3/uL 10^3/uL (0.30-0.80) Absolute Eos (auto) 0.27 10^3/uL 10^3/uL (0.03-0.40) Absolute Basos (auto) 0.12 10^3/uL H 10^3/uL (0.02-0.10) Absolute Nucleated RBC 0.00 10^3/uL 10^3/uL (0-0.01) Immature Gran % 0.6 % % (0.0-1.1) Immature Gran # 0.05 10^3/uL 10^3/uL (0.00-0.10) Sodium 137 mEq/L mEq/L (135-145) Potassium 4.5 mEq/L mEq/L (3.5-5.2) Chloride 98 mEq/L mEq/L (97-110) Carbon Dioxide 29 mEq/l mEq/l (22-31) Anion Gap 10 mEq/L mEq/L (8-16) BUN 25 mg/dL H mg/dL (7-23) Creatinine 0.7 mg/dL mg/dL (0.7-1.3) Estimated GFR > 60 Glucose 114 mg/dL H mg/dL (70-100) Calcium 9.4 mg/dL mg/dL (8.5-10.4) Troponin I < 0.012 ng/mL ng/mL (0.000-0.034) NT-Pro-B Natriuret Pep 1530 pg/mL H pg/mL (0-450) Medications Given: Discontinued Medications Furosemide (Lasix Injection) 40 mg IVP ONCE ONE Stop: 04/25/17 21:44 Last Admin: 04/25/17 22:26 Dose: 40 mg General Time Seen by Provider: 04/25/17 19:32 Initial Vital Signs: Initial Vital Signs Temperature (C) 36.4 C 04/25/17 19:34 Heart Rate 63 04/25/17 19:34 Respiratory Rate 20 04/25/17 19:34 Blood Pressure 143/80 H 04/25/17 19:34 O2 Sat (%) 95 04/25/17 19:34 O2 Delivery Mode Room Air O2 (L/minute) 3 Allergies/Adverse Reactions: clopidogrel bisulfate [From Plavix] Allergy (Verified 04/25/17 19:33) Unknown Corticosteroids (Glucocorticoids) Allergy (Verified 04/25/17 19:33) Unknown meperidine Allergy (Verified 04/25/17 19:33) Unknown meperidine HCl [From Demerol] Allergy (Verified 04/25/17 19:33) Unknown prednisone Allergy (Verified 04/25/17 19:33) Unknown Sulfa (Sulfonamide Antibiotics) Allergy (Verified 04/25/17 19:33) Unknown thiethylperazine Allergy (Verified 04/25/17 19:33) ticlopidine HCl [From Ticlid] Allergy (Verified 04/25/17 19:33) Home Medications: Medication Instructions Recorded Omeprazole [Prilosec 20 mg] 20 mg PO HS 11/04/16 Triamcinolone 0.1% [Triamcinolone 1 emily LEFTEAR BID PRN 11/04/16 0.1% Cream (*)] oxyCODONE IR [Oxycodone Ir (*)] 5 mg PO Q3 PRN 11/04/16 Nystatin Powder [Mycostatin Powder] 1 emily TP BID PRN 04/05/17 oxyCODONE HCL [Oxycontin] 10 mg PO HS 04/05/17 Acetaminophen [Tylenol 325mg (*)] 650 mg PO Q6 PRN 04/25/17 Apixaban [Eliquis] 5 mg PO BID 04/25/17 Atorvastatin Calcium [Lipitor 10 10 mg PO HS 04/25/17 mg (*)] Cholecalciferol Vit D3 [Vitamin D3 50,000 unit PO Q14D 04/25/17 (*)] Duloxetine HCl 80 mg PO HS 04/25/17 Gabapentin [Neurontin 300 MG (*)] 600 mg PO TID 04/25/17 Metoprolol Tartrate [Lopressor 25 25 mg PO BID 04/25/17 mg (*)] Polyethylene Glycol 3350 [Miralax 17 gm PO DAILY 04/25/17 17 gm (*)] amLODIPine BESYLATE [Norvasc 2.5 2.5 mg PO DAILY 04/25/17 mg (*)] guaiFENesin [Guaifenesin ER] 1,200 mg PO BID 04/25/17 Furosemide [Lasix 20 MG (*)] 20 mg PO DAILY@1600 #30 tab 04/29/17 Furosemide [Lasix 40 MG (*)] 40 mg PO DAILY #30 tab 04/29/17 Departure - Departure Disposition: [facility] Acute Clinical Impression: Bilateral pleural effusion, Shortness of breath Acute exacerbation of congestive heart failure Qualifiers: Heart failure type: unspecified Qualified Code(s): I50.9 - Heart failure, unspecified Condition: Fair Report Scribed for: Tiffany Hernandez Report Scribed by: Karuna Gautam Date of Report: 04/25/17 Time of Report: 19:32
[2017-04-25 19:54] LABS: PLATELET COUNT 243 10^3/uL (150-400)
--- NOTE | 2017-04-25 20:10 | CPEKG ---
Heart Rate: 60 RR Interval: 1000 QRSD Interval: 146 QT Interval: 468 QTC Interval: 468 QRS [place]: 139 T Wave [place]: -13 EKG Severity - ABNORMAL ECG - EKG Impression: AFIB/FLUTTER AND VENTRICULAR-PACED RHYTHM Electronically Signed By: Tiffany Hernandez 26-Apr-2017 00:29:35
[2017-04-25] MEDS ORDERED: FUROSEMIDE 40 MG/4 ML VIAL IVP ONE (21:43)
[2017-04-25] MEDS ORDERED: oxyCODONE IR 5 MG TAB PO PRN (21:44)
[2017-04-25] MEDS ORDERED: ONDANSETRON 4 MG/2 ML VIAL IVP PRN (21:44)
[2017-04-25] MEDS ORDERED: ONDANSETRON DISINTEGRATING 4 MG TAB PO PRN (21:44)
--- NOTE | 2017-04-25 22:42 | GHP ---
[f rep st] HISTORY AND PHYSICAL DATE OF ADMISSION: 04/25/2017 HISTORY OF PRESENT ILLNESS: The patient is a pleasant 82-year-old gentleman with a history of recurr ent left pleural effusion, remote tuberculosis, diastolic heart failure, and deafness, who presents w ith low oxygen saturation. It sounds like he was doing well at his chcf facility where he lives. He was found to have low oxygen saturations. He was also noted to be more lethargic than us ual. His son expresses some concern that he is on narcotic pain medicines. He takes OxyContin 10 at night, as well as some p.r.n. during the day. They checked his oxygen saturation. He had a low sat . He is on 3 L. The patient noted chest congestion to the emergency department physician, but denie s fevers or chills. He also notes shortness of breath. When I speak to the patient, he denies these symptoms. REVIEW OF SYSTEMS: Complete 10-point review of systems conducted and negative except as noted in the HPI. PAST MEDICAL HISTORY: 1. Recurrent left-sided pleural effusion. It is typically a transudate. 2. Orthostatic hypotension secondary to autonomic insufficiency. 3. Atrial fibrillation with a pacer. 4. Hypertension. 5. Diastolic dysfunction with resulting congestive heart failure. 6. BPH. 7. Coronary artery disease, status post a stent. 8. Remote tuberculosis, status post lobectomy. 9. Chronic right-sided pleural effusion. 10. Squamous cell carcinoma of the ear, with loss of his external ear on the left. 11. Deafness. ALLERGIES: He is allergic to Plavix, steroids, and sulfa. HOME MEDICATIONS: Preliminary list is Tylenol, amlodipine, apixaban, atorvastatin, vitamin D3, dulox etine, furosemide, gabapentin, guaifenesin, metoprolol, nystatin powder, omeprazole, OxyContin 10 q.h .s., 5 q.3 during the day, MiraLAX, triamcinolone, steroid cream to his ear. FAMILY HISTORY: Reviewed and unremarkable. Parents . PHYSICAL EXAMINATION: PRESENTING VITALS: Temp 36.4, blood pressure 143/80, pulse 63, breathing 20 t imes a minute, 95% on 3 L. IN GENERAL: No acute distress. He is hard of hearing, but otherwise oka y. HEENT: Oropharynx is clear. Left ear: He is missing the superior half of his outer ear. There is crusted blood around it, without obvious infection. His mucous membranes are dry. NECK: Supple . JVD is elevated. HEART: S1, S2. Regular. ABDOMEN: Soft, nontender, nondistended. EXTREMITIES : There is trace lower extremity edema bilaterally. Calves are nontender. SKIN: Without rash. NE UROLOGIC: Exam is nonfocal other than deafness. LABS: White count 9, hematocrit 44, platelets are 243,000. INR is 1.4. Sodium 137, potassium 4.5, chloride 29, bicarb 25, BUN 0.7. BNP is 1530, which is kind of in the middle of where he lives. Tro ponin less than 0.012. Recent pathology showed negative cytology on his pleural fluid. Chest x-ray, reviewed and interpreted by me, shows a recurrent moderate left pleural effusion, chronic multilocul ated right pleural effusion, cardiomegaly, and pulmonary venous hypertension which is unchanged. No objective pulmonary edema. EKG, interpreted by me, shows atrial fibrillation/flutter, paced rhythm a t 60, with left bundle branch block pattern. I discussed the case with Dr. Tiffany Hernandez. ASSESSMENT AND PLAN: An 82-year-old gentleman with multiple comorbidities, here with a likely mild v olume overload and decreased responsiveness. 1. Decreased responsiveness. I attribute this to narcotics. I have held his long-acting . I will put him on 5 q.3 of oxycodone. I think it is reasonable to wean this over time. It seems like primarily pain is ear pain. It might be worth considering topical lidocaine, et cetera. 2. Congestive heart failure. The patient has [id number] mild diastolic heart failure. Give h im some IV Lasix now and in the morning, and follow his response. 3. Chronic hypoxemic respiratory failure. This is multifactorial and unchanged. 4. Squamous cell carcinoma of the ear. Again, I wonder if some sort of local pain relief might be m ore effective than narcotics. 5. Code. It appears to be full. 6. Plan of care. I have written for a Palliative Care consult on this patient, who seems to be repe atedly admitted, and it may be worth thinking about more comfort-based care for him. I have not had a chance to speak with his family. 7. Disposition. Inpatient status. 8. Prophylaxis. Therapeutically anticoagulated. /[id number]/MODL
[2017-04-26] MEDS: ACETAMINOPHEN 500 MG TAB PO SCH ×4 (00:52→22:33)
[2017-04-26] MEDS ORDERED: TRIAMCINOLONE 0.1% 15 GM CRTUBE TP PRN (09:01)
--- NOTE | 2017-04-26 10:10 | WOCRNPDOC ---
WOCRN Advanced Assessment Note - Skin Integrity Problem, Advanced Assess Left Ear Dressing Type: Open to Air Exudate Amount: None Wound Bed Constitution: Scab Skin Integrity Problem Comment: Left ear with most of helix and antihelix missing. Lobule intact. No sign of infection. Please do not tape Oxygen tubing to face. Use chevron method of taping around tubing and then bring tape together and then tape to face so that tubing is not pressing on face. Wound care will sign off.
--- NOTE | 2017-04-26 10:15 | WOCRNPDOC ---
WOCRN Advanced Assessment Note - Skin Integrity Problem, Advanced Assess Left Ear Dressing Type: Open to Air Exudate Amount: None Skin Integrity Problem Comment: Most of helix and antihelix are missing. Lobule intact. No concerns. Please use chevron method to attach oxygen tubing to face to avoid pressure injury by taping tubing directly onto skin. Relayed to Rosetta INIGUEZ. Right Ear Dressing Type: Open to Air [place] Wound Tissue: Blanching, Erythema Pulse Location & Description: please use oxygen cushions. Wound care will sign off.
--- NOTE | 2017-04-26 10:23 | PDMN ---
Medical Necessity Medical necessity: est los>2mn for decreased responsiveness r/t narcotics, and acute on chronic diastolic heart failure; admit for IV Lasix, adjustment of pain medication, and palliative care consult; multiple other comorbid conditions including recurrent L and chronic R pleural effusions, afib/PPM HTN, squamous cell CA of ear; multiple hospital admissions; per order and H&P 04/25/17
[2017-04-26] MEDS: METOPROLOL TARTRATE 25 MG TAB PO SCH ×2 (10:52→22:33)
[2017-04-26] MEDS: GABAPENTIN 300 MG CAP PO SCH ×3 (10:52→22:32)
[2017-04-26] MEDS: APIXABAN 5 MG TAB PO SCH ×2 (10:53→22:32)
[2017-04-26] MEDS: FUROSEMIDE 40 MG/4 ML VIAL IVP SCH ×2 (10:53→15:56)
[2017-04-26] MEDS: POLYETHYLENE GLYCOL 3350 17 GM PKT PO SCH (10:53)
[2017-04-26] MEDS: guaiFENesin 600 MG TAB.ER PO SCH ×2 (10:53→22:31)
--- NOTE | 2017-04-26 15:37 | ASMTCMCOM ---
CM Note CM Note Notes: Patient admitted for decreased responsiveness and acute on chronic disastolic heart failure. 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 His most frequent discharge plan had him taken back to [facility] with home care ([facility]), palliative care ([facility]), and some private pay caregivers/therapists. His daughter in law Florence is usually the spokesperson for the family, and Malachi from our palliative team spoke with her today. She says that patient's daughter Sandrita is coming to town tomorrow and that Sandrita and Fer (patient's son) will address chcf planning/goals. Palliative Care and Case Management will help to facilitate/guide this conversation; family has also requested that hospital medicine address the cause of patient's recurrent pleural effusions. I also received a call from Guanakito Dukes NP with [facility] palliative. He has met with patient once. He is happy to attend a family meeting tomorrow or be present by phone. He agrees wtih us that patient may be more appropriate for hospice in that that would reduce the number of frequent hospitalizations. I left a message for Nina with [facility] informing her of patient's hospitalization, as well. Date Signed: 04/26/2017 03:36 PM Electronically Signed By:Bella John RN
--- NOTE | 2017-04-26 15:38 | HOSPPROG ---
Hospitalist Progress Note Assessment/Plan: * Metabolic encephalopathy - suspect narcotics + hypoxia -mental status currently good, alert and oriented, very [place] * Loculated pleural effusion on right -unclear benefit to further tx - d/w Dr. Merchant - pulmonary to consult * Remote TB s/p lobectomy * Acute on Chronic diastolic CHF -IV Lasix * Recurrent transudative left effusion - likely due to CHF * Afib/PCM -Eliquis * CAD/stent * Squamous cell CA of ear * Extreme [place] Patient remains full cor. Borderline at [place], but typically refuses SNF. Family struggling with decisions regarding goals of care. They desire further clarification regarding status of pleural effusions. Palliative care to meet with them to assist in decision making. Subjective: No new complaints. Wants to go home Objective: Vital Signs Temp Pulse Resp BP Pulse Ox 36.5 C 60 12 111/53 L 91 L 04/26/17 11:37 04/26/17 11:37 04/26/17 11:37 04/26/17 13:56 04/26/17 11:37 Laboratory Results 04/26/17 03:28 04/25/17 04/26/17 04/27/17 05:59 05:59 05:59 Intake Total 110 Output Total 1450 395 Balance -1340 -395 Old chart reviewed, recent CT chest shows extensive loculations around right lung. CXR viewed, my personal interpretation is - loculated right, but bilateral effusions, possible CHF case d/w Dr Merchant - Physical Exam Constitutional: no apparent distress, appears nourished, not in pain Ears, Nose, Mouth, Throat: hard of hearing, No hearing normal Cardiovascular: regular rate and rhythym, no murmur, rub, or gallop Respiratory: no respiratory distress, no rales or rhonchi, clear to auscultation Gastrointestinal: normoactive bowel sounds, soft, non-tender abdomen, no palpable masses Skin: no rashes or abrasions, no fluctuance, no induration Neurologic: AAOx3, sensation intact bilaterally Psychiatric: interacting appropriately, not anxious, not encephalopathic, thought process linear ICD10 Worksheet Patient Problems: Problems Problem Status Onset Acute exacerbation of congestive heart failure Acute Bilateral pleural effusion Acute Shortness of breath Acute CHF (congestive heart failure) Acute Chest pain Acute Hernia Acute Nausea Acute Pneumonia Acute Syncope Acute Weakness Acute chronic disease mgmt/transitional care Acute
[2017-04-26] MEDS ORDERED: GABAPENTIN 300 MG CAP PO SCH (16:00)
[2017-04-26] MEDS ORDERED: APIXABAN 5 MG TAB PO SCH (21:00)
[2017-04-26] MEDS ORDERED: METOPROLOL TARTRATE 25 MG TAB PO SCH (21:00)
[2017-04-26] MEDS ORDERED: guaiFENesin 600 MG TAB.ER PO SCH (21:00)
[2017-04-26] MEDS: DULoxetine 20 MG CAP PO SCH (22:31)
[2017-04-26] MEDS: ATORVASTATIN CALCIUM 10 MG TAB PO SCH (22:32)
[2017-04-27 05:37] LABS: PLATELET COUNT 210 10^3/uL (150-400)
[2017-04-27] MEDS: ACETAMINOPHEN 500 MG TAB PO SCH ×3 (06:34→21:33)
[2017-04-27] MEDS: FUROSEMIDE 40 MG/4 ML VIAL IVP SCH (08:56)
[2017-04-27] MEDS ORDERED: POLYETHYLENE GLYCOL 3350 17 GM PKT PO SCH (09:00)
[2017-04-27] MEDS: APIXABAN 5 MG TAB PO SCH ×2 (09:02→21:37)
[2017-04-27] MEDS: GABAPENTIN 300 MG CAP PO SCH ×3 (09:02→21:33)
[2017-04-27] MEDS: POLYETHYLENE GLYCOL 3350 17 GM PKT PO SCH (09:02)
[2017-04-27] MEDS: METOPROLOL TARTRATE 25 MG TAB PO SCH ×2 (09:02→21:37)
[2017-04-27] MEDS: guaiFENesin 600 MG TAB.ER PO SCH ×2 (09:02→21:33)
--- NOTE | 2017-04-27 12:38 | GCON ---
[f rep st] CONSULTATION DATE OF CONSULTATION: 04/27/2017 REASON FOR CONSULTATION: Chronic pleural effusions. HISTORY: The patient is an 82-year-old with chronic lung disease and chronic pleural effusions. He also has a history of congestive heart failure and coronary artery disease. He is a never smoker. Shayne fernandez had a history of pulmonary tuberculosis many years ago, and is status post right upper lobectomy fo r that. Complete details regarding dates, findings, etc., are unknown to me. He has been in the [facility] area since 2016, moved here to be closer to family. He first presented to [facility] in June of 2015 with shortness of breath. He was found to have bilateral pleural effusions at t hat time, right greater than left. The right side was tapped on that admission, 460 cc of serosangui neous fluid was removed that appeared to be largely transudative. Saturations on room air at that ti pr were 86%. He was treated for heart failure. Cardiac echo showed diastolic dysfunction with an ej ection fraction of 65%. There is mild mitral and tricuspid regurgitation and elevated pulmonary elieser ry pressures, estimated to be approximately 50. He was admitted again in September of 2016. Pleural ef fusions remained present and were similar, right greater than left, with the right having a partially loculated appearance. Thoracentesis was again performed, 450 mL of serosanguineous fluid was again removed. This again appeared to be transudative, however, the pH was 7.0, possibly an error in readi ng or timing, as this finding was not in accordance with his other taps, and there was no evidence of infection. Cultures have remained negative. AFB has been negative. Cytologies have been negative. The patient was again treated for heart failure. He was admitted about a month ago, April 05, for shortness of breath. CT scan was again repeated, his 3rd; the findings were similar compared to the previous 2 CAT scans, with right greater than left pleural effusions. He was again tapped on th e left side this time, 800 mL of serous fluid was removed. Findings suggested a borderline transudat e. Total protein was slightly high. He was again treated for congestive heart failure with increase d diuresis. He does have chronic atrial fibrillation in addition to his diastolic heart failure. He has never had any evidence of infection. He comes in now with increased lethargy and weakness. He has been taking OxyContin. Apparently oxyg en saturations at his senior care facility were noted to be slightly worse. He has been on 2-3 L of oxygen. He denies significant shortness of breath. He denies any chest pain. He has an occasio nal cough and sometimes brings up a small amount of mucus. He is on 2 L of oxygen. PAST MEDICAL HISTORY: Distant history of pulmonary tuberculosis, the 1960s. He is status post appar ent right upper lobectomy. He has chronic right and left-sided pleural effusions. By analysis here, they have been transudative and most likely associated with congestive heart failure. He has known coronary artery disease, diastolic heart failure, chronic atrial fibrillation, and has a pacer. 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 DRUG ALLERGIES: Multiple: Plavix, corticosteroids, Demerol, prednisone, sulfa preparations, Ticlid, and thiethylperazine. MEDICATIONS: On admission included metoprolol, gabapentin, Lasix 40 mg per day, duloxetine, Lipitor, amlodipine, Eliquis, omeprazole, oxycodone, and p.r.n. preparations. He is on oxygen at 2 L. SOCIAL HISTORY: Never smoker, alcohol negative. Lives in assisted-living situation. Family here. FAMILY HISTORY: Noncontributory. REVIEW OF SYSTEMS: Difficult to obtain from the patient secondary to his deafness. PHYSICAL EXAMINATION: GENERAL: Reveals an elderly gentleman who is very hard of hearing, pleasant, and responsive appropriately. It takes 2 people to get him from the bed to the chair. VITAL SIGNS: Blood pressure is 130/70, heart rate 60 and paced. Respiratory rate is 16. On 2 L, saturations are 95%. He is afebrile. HEENT: Remarkable for his left ear surgical changes. Mucous membranes are moist. There is no jugul ar venous distention that I can appreciate. There is no lymphadenopathy or thyromegaly. CHEST: Chest has pretty good breath sounds bilaterally. Breath sounds are somewhat diminished at th e right base more so than the left. No definite dullness is appreciated, right side versus left side . There are some nonspecific, rare, scattered rales primarily at the bases. With cough, there is mi nimal central pulmonary congestion. There are no wheezes. Expiratory phase is not prolonged. HEART : Irregular. A systolic murmur is present. I cannot rule out a soft gallop P2 does appear to be mi ldly increased. ABDOMEN: Soft, nontender. Bowel sounds are present. There is no obvious organomeg roel. No Almeida catheter is in place. He is using a urinal and making urine. There is no edema, no c ords, and no tenderness of the lower extremities. SKIN: Without significant rash or lesions. NEURO LOGIC: Nonfocal. He is quite weak, and has difficulty standing and appears to be at fall risk. Men oxana status is intact. He is very hard of hearing. DATABASE: Chest x-ray on admission shows changes consistent with his chronic findings on CT scan, in cluding bilateral pleural effusions, right greater than left with some evidence of partial loculation and scarring on the right. Laboratory: White blood cell count is 8800, hematocrit 41, platelets 210,000. Basic metabolic panel shows a sodium 142, potassium 3.9, CO2 of 32, BUN 26 with creatinine 0.7. Glucose is 104. Troponin is negative. BNP on admission was 1530. EKG shows atrial fibrillation and paced beats at 60. ASSESSMENT AND RECOMMENDATIONS: Bilateral pleural effusions. These are clearly chronic. The effusi on on the right side is associated with a previous history of thoracic surgery in the 1960s and presu med right upper lobectomy. The loculated appearance is secondary to some pleural scarring and adhesi ons from that procedure. There was no evidence of active infection, no evidence of active or recurre nt tuberculosis. Over time, the pleural effusions have largely been stable, waxing and waning, somew hat secondary to control of his congestive heart failure. He has had both sides tapped. Except for the isolated low pH in September of 2016, which I cannot explain and seems to be in error, the effusions have been basically transudative. I do not feel that a thoracentesis is needed at this time as his effusions seem to be at baseline and have not enlarged. I do not think they are causing significant pulmonary compromise. He is on 2 liters, and air movement bilaterally is fairly good. Continuing tr eatment for congestive heart failure is indicated, including Lasix diuresis. /[id number]/MODL
--- NOTE | 2017-04-27 13:18 | HOSPPROG ---
Hospitalist Progress Note Assessment/Plan: * Acute Metabolic encephalopathy, resolved - suspect narcotics + hypoxia -mental status currently good, alert and oriented, very CHITIMACHA * Loculated pleural effusion on right and left transudative pleural effusion -Etiology of both is transudative and due to waxing/weaning of CHF -The right side is also due to hx of thoracic surgery in the s and presumed right upper lobe lobectomy -The are both chronic in nature -No indication of thoracentesis -Mildly affecting his breathings -Appreciate Dr. Pavon input per his consultation -Cont diuretics per below * Remote TB s/p RUL lobectomy * Acute on Chronic diastolic CHF -IV Lasix, will decrease to once daily -can likely transition to oral soon, would increase his home dose to 40mg a.m. and 20mg pm * Afib/PCM -Eliquis * CAD/stent * Squamous cell CA of ear * Extreme CHITIMACHA Full code Plan: -Diuretics per above -Palliative care meeting, possible additional meeting tomorrow -Need to have a discussion regarding code status -Effusions will cont to wax and wean depending on chf and fluid status d/w team today Objective: Vital Signs Temp Pulse Resp BP Pulse Ox 36.6 C 60 20 114/61 98 04/27/17 11:43 04/27/17 11:43 04/27/17 11:43 04/27/17 11:43 04/27/17 11:43 Laboratory Results 04/27/17 04:30 04/27/17 04:30 04/26/17 04/27/17 04/28/17 05:59 05:59 05:59 Intake Total 110 340 Output Total 1450 745 Balance -1340 -405 - Time Spent With Patient Time Spent with Patient: greater than 35 minutes Time Spent with Patient: Greater than 35 minutes spent on this patients care, greater than 50% of time spent counseling, educating, and coordinating care regarding the above mentioned plan. - Physical Exam Constitutional: no apparent distress, chronically ill appearing Eyes: PERRL, EOMI Ears, Nose, Mouth, Throat: moist mucous membranes, hearing normal Cardiovascular: regular rate and rhythym, No edema Respiratory: no respiratory distress, reduced air movement Gastrointestinal: normoactive bowel sounds, soft, non-tender abdomen Skin: warm Musculoskeletal: generalized weakness Neurologic: No AAOx3 Psychiatric: interacting appropriately, not anxious, encephalopathic Lymph, Heme, Immunologic: no cervical LAD ICD10 Worksheet Patient Problems: Problems Problem Status Onset Acute exacerbation of congestive heart failure Acute Bilateral pleural effusion Acute Shortness of breath Acute CHF (congestive heart failure) Acute Chest pain Acute Hernia Acute Nausea Acute Pneumonia Acute Syncope Acute Weakness Acute chronic disease mgmt/transitional care Acute
[2017-04-27] MEDS: ATORVASTATIN CALCIUM 10 MG TAB PO SCH (21:35)
[2017-04-27] MEDS: DULoxetine 20 MG CAP PO SCH (21:36)
[2017-04-27] MEDS: PANTOPRAZOLE SODIUM 40 MG TAB PO SCH (21:37)
[2017-04-28 04:16] LABS: PLATELET COUNT 218 10^3/uL (150-400)
[2017-04-28] MEDS: ACETAMINOPHEN 500 MG TAB PO SCH ×3 (05:08→20:08)
[2017-04-28] MEDS: oxyCODONE IR 5 MG TAB PO PRN ×2 (05:15→19:26)
[2017-04-28] MEDS ORDERED: FUROSEMIDE 40 MG/4 ML VIAL IVP SCH (09:00)
[2017-04-28] MEDS: GABAPENTIN 300 MG CAP PO SCH ×3 (09:47→20:07)
[2017-04-28] MEDS: APIXABAN 5 MG TAB PO SCH ×2 (09:47→20:07)
[2017-04-28] MEDS: guaiFENesin 600 MG TAB.ER PO SCH ×2 (09:47→20:07)
[2017-04-28] MEDS: POLYETHYLENE GLYCOL 3350 17 GM PKT PO SCH (09:47)
[2017-04-28] MEDS: METOPROLOL TARTRATE 25 MG TAB PO SCH ×2 (09:47→20:07)
--- NOTE | 2017-04-28 12:19 | HOSPPROG ---
Hospitalist Progress Note Assessment/Plan: * Acute Metabolic encephalopathy, resolved - suspect narcotics + hypoxia -mental status currently good, alert and oriented, very MASHPEE * Loculated pleural effusion on right and left transudative pleural effusion -Etiology of both is transudative and due to waxing/weaning of CHF -The right side is also due to hx of thoracic surgery in the s and presumed right upper lobe lobectomy -The are both chronic in nature -No indication of thoracentesis -Mildly affecting his breathing, only on 1 L supplemental O2 -Appreciate Dr. Pavon input per his consultation -Cont diuretics per below * Remote TB s/p RUL lobectomy * Acute on Chronic diastolic CHF -Change IV Lasix to 40mg PO QAM, 20mg QPM * Afib/PCM -Eliquis * CAD/stent * Squamous cell CA of ear * Extreme MASHPEE Full code Plan: -Diuretics per above -Palliative care meeting today -Medically stable for discharge today or tomorrow -Need to have a discussion regarding code status -Effusions will cont to wax and wean depending on chf and fluid status d/w team today Subjective: no overnight event, no new complaints Objective: Vital Signs Temp Pulse Resp BP Pulse Ox 36.6 C 60 18 113/57 L 93 04/28/17 11:06 04/28/17 11:06 04/28/17 11:06 04/28/17 11:06 04/28/17 11:06 Laboratory Results 04/28/17 03:28 04/28/17 03:28 04/27/17 04/28/17 04/29/17 05:59 05:59 05:59 Intake Total 340 900 Output Total 745 550 Balance -405 350 - Physical Exam Constitutional: no apparent distress, chronically ill appearing Eyes: PERRL Ears, Nose, Mouth, Throat: moist mucous membranes, hearing normal Cardiovascular: regular rate and rhythym, No edema Respiratory: no respiratory distress, no rales or rhonchi Gastrointestinal: normoactive bowel sounds, soft, non-tender abdomen Skin: warm Neurologic: No AAOx3 Psychiatric: interacting appropriately, not anxious, encephalopathic Lymph, Heme, Immunologic: No petechiae ICD10 Worksheet Patient Problems: Problems Problem Status Onset Acute exacerbation of congestive heart failure Acute Bilateral pleural effusion Acute Shortness of breath Acute CHF (congestive heart failure) Acute Chest pain Acute Hernia Acute Nausea Acute Pneumonia Acute Syncope Acute Weakness Acute chronic disease mgmt/transitional care Acute
[2017-04-28] MEDS: FUROSEMIDE 20 MG TAB PO SCH (15:09)
[2017-04-28 15:16] VITALS: RESP 16
--- NOTE | 2017-04-28 16:30 | ASMTCMCOM ---
CM Note CM Note Notes: Pts case discussed in morning rounds. CM attended palliative meeting w/ MD, soaping department supervisor and family. CM called [facility] and they report that in order for pt to return pt needs to either enroll with hospice or go to a SNF. Family's first choice is [facility]. Family is okay with semi private room at this time. Referral made Livia. [facility] will accept. CM notified family. Family is in agreement to make pt a DNR. CM to follow. Plan: [facility] Date Signed: 04/28/2017 04:30 PM Electronically Signed By:ROSIE Morales
[2017-04-28] MEDS: PANTOPRAZOLE SODIUM 40 MG TAB PO SCH (20:07)
[2017-04-28] MEDS: ATORVASTATIN CALCIUM 10 MG TAB PO SCH (20:08)
[2017-04-28] MEDS: DULoxetine 20 MG CAP PO SCH (20:08)
[2017-04-28 23:32] VITALS: PULSE 60
[2017-04-29 08:10] VITALS: BP 128/64; TEMP 97.7
[2017-04-29] MEDS ORDERED: FUROSEMIDE 40 MG TAB PO SCH (09:00)
[2017-04-29] MEDS: guaiFENesin 600 MG TAB.ER PO SCH (09:18)
[2017-04-29] MEDS: ACETAMINOPHEN 500 MG TAB PO SCH ×2 (09:18→14:21)
[2017-04-29] MEDS: GABAPENTIN 300 MG CAP PO SCH ×2 (09:18→14:22)
[2017-04-29] MEDS: APIXABAN 5 MG TAB PO SCH (09:18)
[2017-04-29] MEDS: METOPROLOL TARTRATE 25 MG TAB PO SCH (09:19)
[2017-04-29] MEDS: POLYETHYLENE GLYCOL 3350 17 GM PKT PO SCH (09:19)
[2017-04-29 11:25] VITALS: O2SAT 93
--- NOTE | 2017-04-29 11:59 | ASMTLACE ---
LACE Length of stay for Answers: 4-6 days current admission Acuity / Level of Answers: Yes Care: Did the patient have an inpatient admission? Comorbidities - select Answers: Congestive heart failure all that apply Dementia Other Notes: CAD, HTN # of Emergency department Answers: 5-8 visits in the last 6 months Social determinants Answers: Mental health diagnosis (anxiety, depression, pers onality disorders, etc.) Score: 20 Date Signed: 04/29/2017 11:58 AM Electronically Signed By:ROSIE Morales
--- NOTE | 2017-04-29 12:32 | PDIAF ---
- Diagnosis Diagnosis: pleural effussions Code Status: Do Not Resuscitate - Medication Management Discharge Medications: Medications to Continue on Transfer Omeprazole [Prilosec 20 mg] 20 mg PO HS 11/04/16 [Last Taken 04/04/17] Triamcinolone 0.1% [Triamcinolone 0.1% Cream (*)] 1 emiyl LEFTEAR BID PRN [Last Taken Unknown] oxyCODONE IR [Oxycodone Ir (*)] 5 mg PO Q3 PRN 11/04/16 [Last Taken 04/04/17 05: 20] Nystatin Powder [Mycostatin Powder] 1 emily TP BID PRN 04/05/17 [Last Taken Unknown] oxyCODONE HCL [Oxycontin] 10 mg PO HS 04/05/17 [Last Taken 04/04/17] Acetaminophen [Tylenol 325mg (*)] 650 mg PO Q6 PRN 04/25/17 [Last Taken Unknown] Apixaban [Eliquis] 5 mg PO BID 04/25/17 [Last Taken Unknown] Atorvastatin Calcium [Lipitor 10 mg (*)] 10 mg PO HS 04/25/17 [Last Taken Unknown] Cholecalciferol Vit D3 [Vitamin D3 (*)] 50,000 unit PO Q14D 04/25/17 [Last Taken Unknown] Duloxetine HCl 80 mg PO HS 04/25/17 [Last Taken Unknown] Gabapentin [Neurontin 300 MG (*)] 600 mg PO TID 04/25/17 [Last Taken Unknown] Metoprolol Tartrate [Lopressor 25 mg (*)] 25 mg PO BID 04/25/17 [Last Taken Unknown] Polyethylene Glycol 3350 [Miralax 17 gm (*)] 17 gm PO DAILY 04/25/17 [Last Taken Unknown] amLODIPine BESYLATE [Norvasc 2.5 mg (*)] 2.5 mg PO DAILY 04/25/17 [Last Taken Unknown] guaiFENesin [Guaifenesin ER] 1,200 mg PO BID 04/25/17 [Last Taken Unknown] Furosemide [Lasix 20 MG (*)] 20 mg PO DAILY@1600 #30 tab 04/29/17 [Last Taken Unknown] Furosemide [Lasix 40 MG (*)] 40 mg PO DAILY #30 tab 04/29/17 [Last Taken Unknown ] Discharge Medications: Refer to the Discharge Home Medication list for PRN reason. - Orders Services needed: Registered Nurse, Physical Therapy, Occupational Therapy Isolation Type: None Diet Recommendation: cardiac -low fat low salt, fluid restriction (use comment for amount) (1800) - Follow Up Care Current Providers and Referrals: Patient,NotPresent [Unknown] - As per Instructions
--- NOTE | 2017-04-29 12:37 | PDDCSUM ---
Discharge Summary Discharge Summary: 82 yo female admitted with acute metabolic encephalopathy and recurrent pleural effusions. Please see below for details per problem list. Overall the patient is back to baseline. A palliative meeting was held and he was made a DNR. Neither he nor his family are ready for hospice. His effusions are chronic and transudative likely from CHF in nature. Lasix was increased from 40mg daily to 40mg daily + 20mg pm. Consultants: -Pulm -Palliative Care Discharging Facility: [facility] DDx: * Acute Metabolic encephalopathy, resolved - suspect narcotics + hypoxia -mental status currently good, alert and oriented, very AKIACHAK * Loculated pleural effusion on right and left transudative pleural effusion -Etiology of both is transudative and due to waxing/weaning of CHF -The right side is also due to hx of thoracic surgery in the s and presumed right upper lobe lobectomy -The are both chronic in nature -No indication of thoracentesis -Mildly affecting his breathing, only on 1 L supplemental O2 -Appreciate Dr. Pavon input per his consultation -Cont diuretics * Remote TB s/p RUL lobectomy * Acute on Chronic diastolic CHF -Lasix increased to 40mg PO QAM, 20mg QPM * Afib/PCM -Eliquis * CAD/stent * Squamous cell CA of ear * Extreme AKIACHAK Full code EXAM: nad, comfortable aaox3 normal work of breathing no edema no focal weakness eomi hearing impaired meds: see med rec f/u: with PCP in one week total time spent on d/c is 40 minutes. d/w nursing team, cm, and pharmacist at bedside. D/w family.
[2017-04-29] MEDS: FUROSEMIDE 20 MG TAB PO SCH (14:22)
--- NOTE | 2017-04-29 15:16 | ASDISCHSUM ---
Discharge Information Plan Status:SNF Medically Cleared to Leave:04/28/2017 Discharge Date:04/29/2017 02:34 PM CM D/C Disposition: ADT D/C Disposition:[facility] Facility Projected Discharge Date:04/29/2017 11:00 AM Transportation at D/C: Discharge Delay Reason: Follow-Up Date:04/29/2017 11:00 AM Discharge Slot: Final Diagnosis: Placement Information Referral Type:*Detention/SNF Referral ID:[id number] Provider Name:Livia Tolentino [facility] Address 1:[address] Address 2: City:[place] Selection Factors: State:[place] Patient Contact Information Contact Name:ISA Relationship:Son Address:[address] City:[place] Alternate Phone: State/Zip Code:[place] [address] Email: Financial Information Financial Class:Medicare Primary Plan Desc:MEDICARE INPATIENT Primary Plan Number:[id number] Secondary Plan Desc: OUT OF [facility] Secondary Plan Number:[id number] Assessment Information LACE LACE Length of stay for Answers: 4-6 days current admission Acuity / Level of Answers: Yes Care: Did the patient have an inpatient admission? Comorbidities - select Answers: Congestive heart failure all that apply Dementia Other Notes: CAD, HTN # of Emergency department Answers: 5-8 visits in the last 6 months Social determinants Answers: Mental health diagnosis (anxiety, depression, pers onality disorders, etc.) Score: 20 Date Signed: 04/29/2017 11:58 AM Electronically Signed By:ROSIE Morales [facility] CM Progress Note CM Note CM Note Notes: Patient admitted for decreased responsiveness and acute on chronic disastolic heart failure. He has frequent admissions for this, and each time patient is discharged, we have tried to address his snf goals. His most frequent discharge plan had him taken back to [facility] with home care ([facility]), palliative care ([facility]), and some private pay caregivers/therapists. His daughter in law Florence is usually the spokesperson for the family, and Mlaachi from our palliative team spoke with her today. She says that patient's daughter Sandrita is coming to town tomorrow and that Sandrita and Fer (patient's son) will address snf planning/goals. Palliative Care and Case Management will help to facilitate/guide this conversation; family has also requested that hospital medicine address the cause of patient's recurrent pleural effusions. I also received a call from Guanakito Dukes, FI[employer] CHIEF [employer]PUTY with [facility] palliative. He has met with patient once. He is happy to attend a family meeting tomorrow or be present by phone. He agrees wtih us that patient may be more appropriate for hospice in that that would reduce the number of frequent hospitalizations. I left a message for Nina with [facility] informing her of patient's hospitalization, as well. Date Signed: 04/26/2017 03:36 PM Electronically Signed By:Bella John RN [facility] ISAAC Progress Note ISAAC Note ISAAC Note Notes: Pts case discussed in morning rounds. CM attended palliative meeting w/ , benzol operator and family. ISAAC called [facility] and they report that in order for pt to return pt needs to either enroll with hospice or go to a SNF. Family's first choice is [facility]. Family is okay with semi private room at this time. [facility]. CM notified family. Family is in agreement to make pt a DNR. CM to follow. Plan: [facility] Signed: 04/28/2017 04:30 PM Electronically Signed By:ROSIE Morales Case Management Discharge Plan Note Case Management Discharge Discharge Order Complete? Answers: Yes Patient to Obtain Answers: Other Notes: [facility]entino Medications Transportation Arranged Answers: Other Notes: [facility] will Pick (Date 04/29/2017 02:30 PM & Time) EMTALA Complete Answers: No Case Management Transport Answers: Yes Form Complete Faxed Final Orders Answers: Yes Agency/Facility Transfer Answers: Yes Report Printed & Faxed to Receiving Agency Family Notified Answers: Yes Discharge Comments Notes: Pts case discussed in morning rounds. Pt is being discharged today. CM coordinated d/c with pts daughter Sandrita. [facility] will pick pt up at 2:30PM. Non triggering PASRR sent to [place] at [facility] along w/ dc orders. CM provided GEETHA Mosqueda w/ phone number to give report. CM available for changes. Plan: [facility] Signed: 04/29/2017 12:45 PM Electronically Signed By:ROSIE Morales Intervention Information Intervention Type:*IM-Signed Date of Service:04/29/2017 12:03 PM Patient Type:Inpatient Staff Member:ROSIE Martínez Michelle Hours: Discipline: Severity: Comment:
== END 2017-04-29 14:34 | DRG 70 ==
LOC: EDUNIT# → OBSVTOIN 20:59 → F2W 22:40
PROVIDERS: ADMIT Internal Medicine; ATTEND Internal Medicine
DX: G93.41 Metabolic encephalopathy (principal); I11.0 Hypertensive heart disease with heart failure; I50.33 Acute on chronic diastolic (congestive) heart failure; J90 Pleural effusion, not elsewhere classified; I48.91 Unspecified atrial fibrillation; Z66 Do not resuscitate; G20 Parkinson's disease; F02.80 Dementia in other diseases classified elsewhere, unspecified severity, without behavioral disturbance, psychotic disturbance, mood disturbance, and anxiety; Z86.11 Personal history of tuberculosis; Z90.2 Acquired absence of lung [part of]; Z79.01 Long term (current) use of anticoagulants; Z85.820 Personal history of malignant melanoma of skin
CPT/HCPCS: 97110-GP; 97116-GP; 97162-GP; 97166-GO; 97535-GO; G8978-GP-CK; G8979-GP-CJ; G8987-GO-CL; G8988-GO-CK; J1940